=== PATIENT | female | born 1945 | race Caucasian/White ===

== ENCOUNTER 2022-07-26 09:29 | Emergency (ER) ==
--- OUTSIDE RECORDS SUMMARY | 2022-07-26 09:41 | XMS REPORT | Continuity of Care Document ---
:1945 Author Organization [facility] t Address [address] [place] [address] Care Team Providers Name Role Phone COCO REAL Primary Care Physician Unavaila DERRICK Brown Attending Clinician Unavailable LISA NORWOOD Attending Clinician Unavailable JAMIE COSTELLO Attending Clinician Unavailable MAXX JOHNSON Attending Clinician Unavailable MAXX JOHNSON Attending Clinician Unavailable Maxx Johnson MD Attending Clinician Unavailable Catracho Dubon MD Attending Clinician ROXIE TORRES Attending Clinician Unavailable CATRACHO DUBON Attending Clinician Unavailable MD LARISSA Attending Clinician Unavailable [id number] Attending Clinician Unavailable [id number] Attending Clinician Unavailable [id number] Attending Clinician Unavailable Lisa Norwood MD Attending Clinician Derrick Pierson DO Attending Clinician COCO REAL Attending Clinician Unavailable Elena Galvez MD Attending Clinician MAXX JOHNSON Admitting Clinician Unavailable Payers Payer Name Policy Type Policy Number Effective Date Expiration Date S neto [employer] MEDICARE 7 [id number] 2021 [id number] GOLD 00:00:00 PLUS 2021 [employer] MEDICARE [id number] 2021 ADV 00:00:00 Problems Condition Condition Condition Status Onset Resolution Last Treating Co mments Source Name Details Category Date Date Treatment Clinician Date Chest pain Chest pain Disease Active 2021-[address] [facility] Well adult Well adult Disease Active 2021-07 Kathryn calderon exam exam 0-11 Seybold 00:00: - 00 Externa l Asymptomat Asymptomat Disease Active 2021-07 Kathryn calderon ic ic 0-11 Seybold varicose varicose 00:00: - veins of veins of 00 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 s s Risk for Risk for Disease Active 2021-07 Kelse y falls falls 0-11 Seybold 00:00: - 00 Externa l Seasonal Seasonal Disease Active Kelse y allergic allergic 7-12 Seybol d rhinitis rhinitis 00:00: - due to due to 00 Externa pollen pollen l Hypertensi Hypertensi Disease Active 2020-07 Kathryn calderon on, on, 0-07 Seybold essential essential 00:00: - 00 Externa l 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 6-30 Se ybold asthma asthma 00:00: - without without 00 Externa complicati complicati l on on GERD GERD Disease Active Sonal (gastroeso (gastroeso 1-23 Se ybold phageal phageal 00:00: - reflux reflux 00 Externa disease) disease) l 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 The 10 yr probabili ty of fracture ( %):Major osteoporo tic- 5.4Hip fracture- 1.1 Allergies, Adverse Reactions, Alerts Allergy Allergy Status Severity Reaction(s) Onset Inactive Treating Comm ents Source Name Type Date Date Clinician Penicill Propensi Active Hives, Other [facility] also [facility] adverse Comments) 00:00: passed Medica l reaction 00 out. Center s PENICILL Allergy Active Hives [facility] Penicill Drug Active Other Pt states Kelse y ins Allergy 02-10 she also Seybold 00:00: passed 00 out. Penicill Drug Active Other Pt states Kelse y ins Allergy 02-10 she also Seybold 00:00: passed - 00 out. Externa l Social History Social Habit Start Date Stop Date Quantity Comments Source Exposure to Not sure Sonal greene SARS-CoV-2 (event) History [facility] Alcohol Frequency Medical Center History SDMN [facility] Alcohol Std Drinks Medica l Center History [facility]MN [facility] Alcohol Binge Medical Any ter History [facility] Transport Non-Med Medical Center History of tobacco Cigarette Smoker [facility] use Medical Center Alcohol intake 2022-06-19 2022-06-19 [facility] alcohol Medical Center (finding) History [facility] 2022-06-11 2022-06-[address] [facility] Alcohol Comment 00:00:00 00:00:00 Medical C enter History [facility] 2022-06-11 2022-06-[address] [facility] Transport Med 00:00:00 00:00:[address] History [facility] 2022-06-11 2022-06-[address] [facility] Housing Unable to 00:00:00 00:00:00 Medical Center Pay History [facility] 2022-06-11 2022-06-[address] [facility] Housing Places 00:00:00 00:00:00 Medical Ce nter Lived History [facility] 2022-06-11 2022-06-[address] [facility] Housing Homeless 00:00:00 00:00:00 Medical Center Last Year Cigarettes smoked 2022-06-11 2022-06-[address] [facility] current (pack per 00:00:00 00:00:00 Medical Center day) - Reported Tobacco use and 2022-06-11 2022-06-11 Never used MARY Tillman exposure 00:00:00 00:00:[address] [facility] Cigarette 2022-04-15 2022-04-15 Sonal Monkavebrady - pack-years 00:00:00 00:00:00 External Education 2022-04-15 2022-04-15 16 Sonal Lora - 00:00:00 00:00:00 External Tobacco Comment 2021-04-11 2021-04-11 a pack a week for Stew hurd Seybold - 00:00:00 00:00:00 39 years;stopped External x 2 weeks ago Sex [birth year] MARY Tillman 00:00:00 00:00:[address] [facility] Smoking Status Start Date Stop Date Source Former smoker 2022-06-11 00:00:00 2022-06-11 00:00:00 [facility] Smokes tobacco daily 2022-04-15 00:00:00 Sonal Lora - External Medications Ordered Filled Start Stop Current Ordering Indication Dosage Frequency Signature Comments Components Source Medication Medication Date Date Medication? Clinician (SIG) Name Name lisinopriL 2021-07 Yes 10mg QD Take [address] (PRINIVIL,Z 08-12 by mouth Luke s ESTRIL) 10 21:50: daily. Medic al MG tablet [address] [place] [address] famotidine 2021-07 Yes 20mg Take [address] (PEPCID) 20 - by mouth Luke s MG tablet 21:50: every Medical 07 night as Center needed for Heartburn. aspirin 81 2021-07 Yes 81mg QD Take [address] MG chewable 08-12 by mouth Luke s tablet 21:50: daily. Medical [address] [place] [address] melatonin-p 2021-07- No Take by [facility] yridoxine, 2- mouth. [facility] vit B6, 11:44: 00:00 Medical (MELATONIN, 21 :00 Center WITH B6,) 5-1 mg Tab Melatonin 5 2021-07- No Take by Ke lsey MG oral Tab 0-04-15 mouth Seybol d 08:44: 00:00 - 00 :00 Externa l Famotidine Yes [id number] 20mg Take 1 Sonal (PEPCID) 20 5-18 tablet (20 Se ybold MG oral 00:00: mg total) - tablet 00 by mouth Externa in the l morning and 1 tablet (20 mg total) in the evening. Melatonin 5 Yes Take by Claus sey MG oral Tab 4-26 mouth Seybold 10:25: 19 Famotidine Yes [id number] 20mg Take 1 Sonal (PEPCID) 20 4-26 tablet (20 Se ybold MG oral 00:00: mg total) tablet 00 by mouth in the morning and 1 tablet (20 mg total) in the evening. Albuterol Yes [id number] 2{puff} Q.25D Inhale 2 Sonal HFA 1-31 puffs into Seybold (VENTOLIN 00:00: the lungs HFA) 108 00 every 6 (90 Base) hours as MCG/ACT IN needed for AERS wheezing or shortness of breath FLUTICASONE Yes [id number] 100ug Use 2 Sonal PROPIONATE, 1-31 sprays Seybol d NASAL, 50 00:00: (100 mcg MCG/ACT 00 total) in nasal each Suspension nostril daily Albuterol Yes [id number] 2{puff} Q.25D Inhale 2 Sonal HFA 1-31 puffs into Seybold (VENTOLIN 00:00: the lungs - HFA) 108 00 every 6 Externa (90 Base) hours as l MCG/ACT IN needed for AERS wheezing or shortness of breath FLUTICASONE Yes [id number] 100ug Use 2 Sonal PROPIONATE, 1-31 sprays Seybol d NASAL, 50 00:00: (100 mcg - MCG/ACT 00 total) in Externa nasal each l Suspension nostril daily Melatonin 5 2020-07 Yes Take by Claus sey MG oral Tab 2-07 mouth Seybold 10:32: 16 Lisinopril 2020-07 Yes [id number] TAKE 1 K elsey 10 MG oral 2-04 TABLET BY Seyb old Tablet 00:00: MOUTH 00 EVERY DAY Lisinopril 2020-07 Yes [id number] TAKE 1 K elsey 10 MG oral 2-04 TABLET BY Seyb old Tablet 00:00: MOUTH 00 EVERY DAY Lisinopril 2020-07 Yes [id number] TAKE 1 K elsey 10 MG oral 2-04 TABLET BY Seyb old Tablet 00:00: MOUTH - 00 EVERY DAY Externa l Melatonin 5 2020-07 Yes Take by Claus sey MG oral Tab 0-19 mouth Seybold 08:00: 14 Melatonin 5 1 Yes Take by Claus sey MG oral Tab 0-07 mouth Seybold 09:53: 50 Melatonin 5 0 Yes Take by Claus sey MG oral Tab 9-21 mouth Seybold 08:00: 13 Lisinopril 0 Yes [id number] 10mg Take 1 K elsey 10 MG oral 9-21 tablet (10 Sey bold Tablet 00:00: mg total) 00 by mouth daily Lisinopril Yes [id number] 10mg Take 1 K elsey 10 MG oral 9-21 tablet (10 Sey bold Tablet 00:00: mg total) 00 by mouth daily Lisinopril Yes [id number] 10mg Take 1 K elsey 10 MG oral 9-21 tablet (10 Sey bold Tablet 00:00: mg total) 00 by mouth daily Melatonin 5 Yes Take by Claus sey MG oral Tab 9-07 mouth Seybold 08:15: 36 Triamcinolo 2020-0 Yes [id number] Apply K elsey ne 9-07 sparingly Seybold Acetonide 00:00: BID to 0.1 % apply 00 rash of externally body PRN. Ointment Not for face or folds. Triamcinolo 0 Yes [id number] Apply K elsey ne 9-07 sparingly Seybold Acetonide 00:00: BID to 0.1 % apply 00 rash of externally body PRN. Ointment Not for face or folds. Triamcinolo 2020-0 Yes [id number] Apply K elsey ne 9-07 sparingly Seybold Acetonide 00:00: BID to 0.1 % apply 00 rash of externally body PRN. Ointment Not for face or folds. Triamcinolo 2020-0 Yes [id number] Apply K elsey ne 9-07 sparingly Seybold Acetonide 00:00: BID to 0.1 % apply 00 rash of externally body PRN. Ointment Not for face or folds. Triamcinolo Yes [id number] Apply K elsey ne 9-07 sparingly Seybold Acetonide 00:00: BID to - 0.1 % apply 00 rash of Exter na externally body PRN. l Ointment Not for face or folds. Triamcinolo Yes [id number] Apply K elsey ne 9-07 sparingly Seybold Acetonide 00:00: BID to 0.1 % apply 00 rash of externally body PRN. Ointment Not for face or folds. Triamcinolo Yes [id number] Apply K elsey ne 9-07 sparingly Seybold Acetonide 00:00: BID to 0.1 % apply 00 rash of externally body PRN. Ointment Not for face or folds. Acyclovir 5 2020- No [id number] Apply 1 Sonal % apply 02-27 applicatio Seybo ld externally 00:00: 00:00 n Cream 00 :00 topically 5 times daily Levothyroxi Yes 75ug Take 1 Maribel ey ne Sodium 8-20 tablet (75 Seyb old 75 MCG oral 00:00: mcg total) Tablet 00 by mouth daily Levothyroxi Yes 75ug Take 1 Maribel ey ne Sodium 8-20 tablet (75 Seyb old 75 MCG oral 00:00: mcg total) Tablet 00 by mouth daily Levothyroxi Yes 75ug Take 1 Maribel ey ne Sodium 8-20 tablet (75 Seyb old 75 MCG oral 00:00: mcg total) Tablet 00 by mouth daily Levothyroxi Yes 75ug Take 1 Maribel ey ne Sodium 8-20 tablet (75 Seyb old 75 MCG oral 00:00: mcg total) Tablet 00 by mouth daily Levothyroxi Yes 75ug Take 1 Maribel ey ne Sodium 8-20 tablet (75 Seyb old 75 MCG oral 00:00: mcg total) - Tablet 00 by mouth Externa daily l Levothyroxi Yes 75ug Take 1 Maribel ey ne Sodium 8-20 tablet (75 Seyb old 75 MCG oral 00:00: mcg total) Tablet 00 by mouth daily Levothyroxi 2021-0 Yes 75ug Take 1 Maribel ey ne Sodium 8-20 tablet (75 Seyb old 75 MCG oral 00:00: mcg total) Tablet 00 by mouth daily Budesonide- 2020-0 Yes [id number] 2{puff} Inhale 2 Sonal Formoterol 3-30 puffs into Sey bold Fumarate 00:00: the lungs (Symbicort) 00 2 times 160-4.5 daily MCG/ACT inhalation Aerosol Budesonide- 2020-0 Yes [id number] 2{puff} Inhale 2 Sonal Formoterol 3-30 puffs into Sey bold Fumarate 00:00: the lungs (Symbicort) 00 2 times 160-4.5 daily MCG/ACT inhalation Aerosol Budesonide- 2020-0 Yes [id number] 2{puff} Inhale 2 Sonal Formoterol 3-30 puffs into Sey bold Fumarate 00:00: the lungs (Symbicort) 00 2 times 160-4.5 daily MCG/ACT inhalation Aerosol Budesonide- 2020-0 Yes [id number] 2{puff} Inhale 2 Sonal Formoterol 3-30 puffs into Sey bold Fumarate 00:00: the lungs (Symbicort) 00 2 times 160-4.5 daily MCG/ACT inhalation Aerosol Budesonide- 2020-0 Yes [id number] 2{puff} Inhale 2 Sonal Formoterol 3-30 puffs into Sey bold Fumarate 00:00: the lungs (Symbicort) 00 2 times 160-4.5 daily MCG/ACT inhalation Aerosol Budesonide- 2020-0 Yes [id number] 2{puff} Inhale 2 Sonal Formoterol 3-30 puffs into Sey bold Fumarate 00:00: the lungs (Symbicort) 00 2 times 160-4.5 daily MCG/ACT inhalation Aerosol Baclofen 10 2020-0 2020- No [id number] Take half Sonal MG oral 3-12 09-07 a tablet Seybold Tablet 00:00: 00:00 po tid as 00 :00 needed for low back pain FLUTICASONE 2019- Yes [id number] 2{spray Use 2 Sonal PROPIONATE, 0-13 } sprays in Sey bold NASAL, 50 00:00: each MCG/ACT 00 nostril nasal daily Suspension FLUTICASONE 2019-07 Yes [id number] 2{spray Use 2 Sonal PROPIONATE, 0-13 } sprays in Sey bold NASAL, 50 00:00: each MCG/ACT 00 nostril nasal daily Suspension FLUTICASONE 2020-1 Yes [id number] 2{spray Use 2 Sonal PROPIONATE, 0-13 } sprays in Sey bold NASAL, 50 00:00: each MCG/ACT 00 nostril nasal daily Suspension FLUTICASONE 2020-1 Yes [id number] 2{spray Use 2 Sonal PROPIONATE, 0-13 } sprays in Sey bold NASAL, 50 00:00: each MCG/ACT 00 nostril nasal daily Suspension FLUTICASONE 2020-1 Yes [id number] 2{spray Use 2 Sonal PROPIONATE, 0-13 } sprays in Sey bold NASAL, 50 00:00: each MCG/ACT 00 nostril nasal daily Suspension Albuterol 2020-0 Yes [id number] 2{puff} Q6H Inhale 2 Sonal HFA 3-20 puffs into Seybold (VENTOLIN 00:00: the lungs HFA) 108 00 every 6 (90 Base) hours as MCG/ACT IN needed for AERS wheezing or shortness of breath Spacer/Aero 2020-0 Yes Use with Ke lsey -Holding 3-20 albuterol Seybol d Chambers 00:00: inhaler (OPTICHAMBE 00 R FACE MASK-MEDIUM ) does not apply Misc Albuterol 2020-0 Yes [id number] 2{puff} Q6H Inhale 2 Sonal HFA 3-20 puffs into Seybold (VENTOLIN 00:00: the lungs HFA) 108 00 every 6 (90 Base) hours as MCG/ACT IN needed for AERS wheezing or shortness of breath Spacer/Aero 2020-0 Yes Use with Ke lsey -Holding 3-20 albuterol Seybol d Chambers 00:00: inhaler (OPTICHAMBE 00 R FACE MASK-MEDIUM ) does not apply Misc Spacer/Aero 2020-0 Yes Use with Ke lsey -Holding 3-20 albuterol Seybol d Chambers 00:00: inhaler (OPTICHAMBE 00 R FACE MASK-MEDIUM ) does not apply Misc Spacer/Aero 2020-0 Yes Use with Ke lsey -Holding 3-20 albuterol Seybol d Chambers 00:00: inhaler - (OPTICHAMBE 00 Externa R FACE l MASK-MEDIUM ) does not apply Misc Albuterol 2020-0 Yes [id number] 2{puff} Q6H Inhale 2 Sonal HFA 3-20 puffs into Seybold (VENTOLIN 00:00: the lungs HFA) 108 00 every 6 (90 Base) hours as MCG/ACT IN needed for AERS wheezing or shortness of breath Spacer/Aero 2020-0 Yes Use with Ke lsey -Holding 3-20 albuterol Seybol d Chambers 00:00: inhaler (OPTICHAMBE 00 R FACE MASK-MEDIUM ) does not apply Misc Albuterol 2020-0 Yes [id number] 2{puff} Q6H Inhale 2 Sonal HFA 3-20 puffs into Seybold (VENTOLIN 00:00: the lungs HFA) 108 00 every 6 (90 Base) hours as MCG/ACT IN needed for AERS wheezing or shortness of breath Spacer/Aero 2020-0 Yes Use with Ke lsey -Holding 3-20 albuterol Seybol d Chambers 00:00: inhaler (OPTICHAMBE 00 R FACE MASK-MEDIUM ) does not apply Misc Albuterol 2020-0 Yes [id number] 2{puff} Q6H Inhale 2 Sonal HFA 3-20 puffs into Seybold (VENTOLIN 00:00: the lungs HFA) 108 00 every 6 (90 Base) hours as MCG/ACT IN needed for AERS wheezing or shortness of breath Spacer/Aero 2020-0 Yes Use with Ke lsey -Holding 3-20 albuterol Seybol d Chambers 00:00: inhaler (OPTICHAMBE 00 R FACE MASK-MEDIUM ) does not apply Misc levothyroxi Yes 75ug Take [address] [facility] 8-06 [facility]cg by [facility] (SYNTHROID, 00:00: mouth Medic al LEVOTHROID) 00 Every Center 75 MCG morning on tablet an empty stomach . budesonide- 2021- No 2{puff} [address] formoterol 3-31 12-07 [facility] (SYMBICORT) 00:00: 00:00 Medic al 160-4.5 00 :00 Center mcg/actuati on inhaler albuterol 2021- No 2{puff} [address] [address] HFA (PROAIR 6-06-[address] [facility] HFA) 90 00:00: 00:00 Medical mcg/actuati 00 :00 Center on inhaler Immunizations Ordered Immunization Filled Immunization Date Status Commen ts Source Name Name Influenza Virus 2022-04-15 Completed Sonal Se ybold Vaccine, 00:00:00 - External Quadrivalent, High Dose, Age 65 And Up Influenza Virus 2021-03-26 Completed Sonal Se ybold Vaccine, 00:00:00 Quadrivalent, High Dose, Age 65 And Up Influenza Virus 2021-03-26 Completed Sonal Se ybold Vaccine, 00:00:00 Quadrivalent, High Dose, Age 65 And Up Influenza Virus 2021-03-26 Completed Sonal Se ybold Vaccine, 00:00:00 Quadrivalent, High Dose, Age 65 And Up Influenza Virus 2021-03-26 Completed Sonal Se ybold Vaccine, 00:00:00 Quadrivalent, High Dose, Age 65 And Up Influenza Virus 2021-03-26 Completed Sonal Se ybold Vaccine, 00:00:00 - External Quadrivalent, High Dose, Age 65 And Up Influenza Virus 2021-03-26 Completed Sonal Se ybold Vaccine, 00:00:00 Quadrivalent, High Dose, Age 65 And Up Covid-19 Vaccine 2020-10-03 Completed Sonal powellbold (Moderna), Mrna-lnp, 00:00:00 [facility] Protein, Pf, 100 Mcg/0.5ml,IM Covid-19 Vaccine 2020-10-03 Completed Sonal Whitlock eybold (Moderna), Mrna-lnp, 00:00:00 [facility] Protein, Pf, 100 Mcg/0.5ml,IM Covid-19 Vaccine 2020-10-03 Completed Sonal Whitlock eybold (Moderna), Mrna-lnp, 00:00:00 [facility] Protein, Pf, 100 Mcg/0.5ml,IM Covid-19 Vaccine 2020-10-03 Completed Sonal Whitlock eybold Moderna (Spikevax), 00:00:00 Mrna-lnp, [facility] Protein, Pf Covid-19 Vaccine 2020-10-03 Completed Sonal delgadold Moderna (Spikevax), 00:00:00 - Ext ernal Mrna-lnp, [facility] Protein, Pf Covid-19 Vaccine 2020-10-03 Completed Sonal S eybold (Moderna), Mrna-lnp, 00:00:00 [facility] Protein, Pf, 100 Mcg/0.5ml,IM Covid-19 Vaccine 2020-10-03 Completed Sonal S eybold (Moderna), Mrna-lnp, 00:00:00 [facility] Protein, Pf, 100 Mcg/0.5ml,IM Covid-19 Vaccine 2020-09-05 Completed Sonal S eybold (Moderna), Mrna-lnp, 00:00:00 [facility] Protein, Pf, 100 Mcg/0.5ml,IM Covid-19 Vaccine 2020-09-05 Completed Sonal S eybold (Moderna), Mrna-lnp, 00:00:00 [facility] Protein, Pf, 100 Mcg/0.5ml,IM Covid-19 Vaccine 2020-09-05 Completed Sonal S eybold (Moderna), Mrna-lnp, 00:00:00 [facility] Protein, Pf, 100 Mcg/0.5ml,IM Covid-19 Vaccine 2020-09-05 Completed Sonal S eybold Moderna (Spikevax), 00:00:00 Mrna-lnp, [facility] Protein, Pf Covid-19 Vaccine 2020-09-05 Completed Sonal S eybold Moderna (Spikevax), 00:00:00 - Ext ernal Mrna-lnp, [facility] Protein, Pf Covid-19 Vaccine 2020-09-05 Completed Sonal S eybold (Moderna), Mrna-lnp, 00:00:00 [facility] Protein, Pf, 100 Mcg/0.5ml,IM Covid-19 Vaccine 2020-09-05 Completed Sonal S eybold (Moderna), Mrna-lnp, 00:00:00 [facility] Protein, Pf, 100 Mcg/0.5ml,IM Influenza Virus 2020-02-28 Completed Sonal Se ybold Vaccine, 00:00:00 Quadrivalent, High Dose, Age 65 And Up Influenza Virus 2020-02-28 Completed Soanl Se ybold Vaccine, 00:00:00 Quadrivalent, High Dose, Age 65 And Up Influenza Virus 2020-02-28 Completed Sonal Se ybold Vaccine, 00:00:00 Quadrivalent, High Dose, Age 65 And Up Influenza Virus 2020-02-28 Completed Sonal Se ybold Vaccine, 00:00:00 Quadrivalent, High Dose, Age 65 And Up Influenza Virus 2020-02-28 Completed Sonal Se ybold Vaccine, 00:00:00 - External Quadrivalent, High Dose, Age 65 And Up Influenza Virus 2020-02-28 Completed Sonal Se ybold Vaccine, 00:00:00 Quadrivalent, High Dose, Age 65 And Up Influenza Virus 2020-02-28 Completed Sonal Se ybold Vaccine, 00:00:00 Quadrivalent, High Dose, Age 65 And Up Influenza Virus 2019-06-20 Completed Sonal Se ybold Vaccine, High Dose, 00:00:00 Age 65 And Up Influenza Virus 2019-06-20 Completed Sonal Se ybold Vaccine, High Dose, 00:00:00 Age 65 And Up Influenza Virus 2019-06-20 Completed Sonal Se ybold Vaccine, High Dose, 00:00:00 Age 65 And Up Influenza Virus 2019-06-20 Completed Sonal Se ybold Vaccine, High Dose, 00:00:00 Age 65 And Up Influenza Virus 2019-06-20 Completed Sonal Se ybold Vaccine, High Dose, 00:00:00 - Ext ernal Age 65 And Up Influenza Virus 2019-06-20 Completed Sonal Se ybold Vaccine, High Dose, 00:00:00 Age 65 And Up Influenza Virus 2019-06-20 Completed Sonal Se ybold Vaccine, High Dose, 00:00:00 Age 65 And Up Shingles IM 2018-06-24 Completed Sonal Seybol d (Shingrix) 00:00:00 Shingles IM 2018-06-24 Completed Sonal Seybol d (Shingrix) 00:00:00 Shingles IM 2018-06-24 Completed Sonal Seybol d (Shingrix) 00:00:00 Shingles IM 2018-06-24 Completed Sonal Seybol d (Shingrix) 00:00:00 Shingles IM 2018-06-24 Completed Sonal Seybol d (Shingrix) 00:00:00 - External Shingles IM 2018-06-24 Completed Sonal Seybol d (Shingrix) 00:00:00 Shingles IM 2018-06-24 Completed Sonal Seybol d (Shingrix) 00:00:00 Influenza Virus 2018-05-19 Completed Sonal Se ybold Vaccine, High Dose, 00:00:00 Age 65 And Up Influenza Virus 2018-05-19 Completed Sonal Se ybold Vaccine, High Dose, 00:00:00 Age 65 And Up Influenza Virus 2018-05-19 Completed Sonal Se ybold Vaccine, High Dose, 00:00:00 Age 65 And Up Influenza Virus 2018-05-19 Completed Sonal Se ybold Vaccine, High Dose, 00:00:00 Age 65 And Up Influenza Virus 2018-05-19 Completed Sonal Se ybold Vaccine, High Dose, 00:00:00 - Ext ernal Age 65 And Up Influenza Virus 2018-05-19 Completed Sonal Se ybold Vaccine, High Dose, 00:00:00 Age 65 And Up Influenza Virus 2018-05-19 Completed Sonal Se ybold Vaccine, High Dose, 00:00:00 Age 65 And Up Shingles IM 2018-03-25 Completed Sonal Seybol d (Shingrix) 00:00:00 Shingles IM 2018-03-25 Completed Sonal Seybol d (Shingrix) 00:00:00 Shingles IM 2018-03-25 Completed Sonal Seybol d (Shingrix) 00:00:00 Shingles IM 2018-03-25 Completed Sonal Seybol d (Shingrix) 00:00:00 Shingles IM 2018-03-25 Completed Sonal Seybol d (Shingrix) 00:00:00 - External Shingles IM 2018-03-25 Completed Sonal Seybol d (Shingrix) 00:00:00 Shingles IM 2018-03-25 Completed Sonal Seybol d (Shingrix) 00:00:00 Influenza Virus 2017-04-29 Completed Sonal Se ybold Vaccine, High Dose, 00:00:00 Age 65 And Up Influenza Virus 2017-04-29 Completed Sonal Se ybold Vaccine, High Dose, 00:00:00 Age 65 And Up Influenza Virus 2017-04-29 Completed Sonal Se ybold Vaccine, High Dose, 00:00:00 Age 65 And Up Influenza Virus 2017-04-29 Completed Osnal Se ybold Vaccine, High Dose, 00:00:00 Age 65 And Up Influenza Virus 2017-04-29 Completed Sonal Se ybold Vaccine, High Dose, 00:00:00 - Ext ernal Age 65 And Up Influenza Virus 2017-04-29 Completed Sonal Se ybold Vaccine, High Dose, 00:00:00 Age 65 And Up Influenza Virus 2017-04-29 Completed Sonal Se ybold Vaccine, High Dose, 00:00:00 Age 65 And Up Pneumococcal Vaccine, 2016-04-04 Completed Claus sey Seybold Conjugate 13 00:00:00 Influenza Virus 2016-04-04 Completed Sonal Se ybold Vaccine, High Dose, 00:00:00 Age 65 And Up Pneumococcal Vaccine, 2016-04-04 Completed Claus sey Seybold Conjugate 13 00:00:00 Influenza Virus 2016-04-04 Completed Sonal Se ybold Vaccine, High Dose, 00:00:00 Age 65 And Up Pneumococcal Vaccine, 2016-04-04 Completed Claus sey Seybold Conjugate 13 00:00:00 Influenza Virus 2016-04-04 Completed Sonal Se ybold Vaccine, High Dose, 00:00:00 Age 65 And Up Pneumococcal Vaccine, 2016-04-04 Completed Claus sey Seybold Conjugate 13 00:00:00 Influenza Virus 2016-04-04 Completed Sonal Se ybold Vaccine, High Dose, 00:00:00 Age 65 And Up Pneumococcal Vaccine, 2016-04-04 Completed Claus sey Seybold Conjugate 13 00:00:00 - External Influenza Virus 2016-04-04 Completed Sonal Se ybold Vaccine, High Dose, 00:00:00 - Ext ernal Age 65 And Up Pneumococcal Vaccine, 2016-04-04 Completed Claus sey Seybold Conjugate 13 00:00:00 Influenza Virus 2016-04-04 Completed Sonal Se ybold Vaccine, High Dose, 00:00:00 Age 65 And Up Pneumococcal Vaccine, 2016-04-04 Completed Claus sey Seybold Conjugate 13 00:00:00 Influenza Virus 2016-04-04 Completed Sonal Se ybold Vaccine, High Dose, 00:00:00 Age 65 And Up Tdap- (Boostrix, 2016-03-07 Completed Sonal Whitlock eybold Adacel) 00:00:00 Tdap- (Boostrix, 2016-03-07 Completed Sonal Whitlock eybold Adacel) 00:00:00 Tdap- (Boostrix, 2016-03-07 Completed Sonal Whitlock eybold Adacel) 00:00:00 Tdap- (Boostrix, 2016-03-07 Completed Sonal powellbonupur Adacel) 00:00:00 Tdap- (Boostrix, 2016-03-07 Completed Sonal Whitlock eybold Adacel) 00:00:00 - External Tdap- (Boostrix, 2016-03-07 Completed Sonal Whitlock eybold Adacel) 00:00:00 Tdap- (Boostrix, 2016-03-07 Completed Sonal Whitlock eybold Adacel) 00:00:00 Tdap 2016-03-[address] [facility] 00:00:[address] [facility] Pneumococcal Vaccine, 2012-10-20 Completed Claus sey Seybold Polysaccharide 00:00:00 Pneumococcal Vaccine, 2012-10-20 Completed Claus sey Seybold Polysaccharide 00:00:00 Pneumococcal Vaccine, 2012-10-20 Completed Claus sey Seybold Polysaccharide 00:00:00 Pneumococcal Vaccine, 2012-10-20 Completed Claus sey Seybold Polysaccharide 00:00:00 Pneumococcal Vaccine, 2012-10-20 Completed Claus sey Seybold Polysaccharide 00:00:00 - External Pneumococcal Vaccine, 2012-10-20 Completed Claus sey Seybold Polysaccharide 00:00:00 Pneumococcal Vaccine, 2012-10-20 Completed Claus sey Seybold Polysaccharide 00:00:00 Shingles SQ 2010-07-06 Completed Sonal Seybol d (Zostavax) 00:00:00 Shingles SQ 2010-07-06 Completed Sonal Seybol d (Zostavax) 00:00:00 Shingles SQ 2010-07-06 Completed Sonal Seybol d (Zostavax) 00:00:00 Shingles SQ 2010-07-06 Completed Sonal Seybol d (Zostavax) 00:00:00 Shingles SQ 2010-07-06 Completed Sonal Seybol d (Zostavax) 00:00:00 - External Shingles SQ 2010-07-06 Completed Sonal Seybol d (Zostavax) 00:00:00 Shingles SQ 2010-07-06 Completed Sonal Seybol d (Zostavax) 00:00:00 Vital Signs Vital Name Observation Time Observation Value Comments Source HEIGHT 2022-06-11 11:18:00 152.4 cm WEIGHT 2022-06-11 11:18:00 66.815 kg HEIGHT 2022-06-11 11:18:00 152.4 cm WEIGHT 2022-06-11 11:18:00 66.815 kg Systolic blood 2022-04-15 13:38:00 124 mm[Hg] Sonal Seybold pressure - External Diastolic blood 2022-04-15 13:38:00 84 mm[Hg] Kelse y Seybold pressure - External Heart rate 2022-04-15 13:38:00 74 /min Sonal S eybold - External Body temperature 2022-04-15 13:38:00 36.28 Cheyanne Maribel ey Seybold - External Respiratory rate 2022-04-15 13:38:00 14 /min Maribel ey Seybold - External Body height 2022-04-15 13:38:00 152.4 cm Sonal S eybold - External Body weight 2022-04-15 13:38:00 69.4 kg Sonal S eybold - External BMI 2022-04-15 13:38:00 29.88 kg/m2 Sonal S eybold - External Systolic blood 2021-10-29 15:22:00 132 mm[Hg] Sonal Seybold pressure Diastolic blood 2021-10-29 15:22:00 78 mm[Hg] Kelse y Seybold pressure Heart rate 2021-10-29 15:22:00 72 /min Sonal S eybold Body temperature 2021-10-29 15:22:00 36.56 Cheyanne Maribel ey Seybold Respiratory rate 2021-10-29 15:22:00 14 /min Maribel ey Seybold Body height 2021-10-29 15:22:00 152.4 cm Sonal S eybold Body weight 2021-10-29 15:22:00 70.308 kg Sonal S eybold BMI 2021-10-29 15:22:00 30.27 kg/m2 Sonal S eybold Systolic blood 2021-04-23 12:56:00 162 mm[Hg] Sonal Seybold pressure Diastolic blood 2021-04-23 12:56:00 76 mm[Hg] Kelse y Seybold pressure Heart rate 2021-04-23 12:56:00 77 /min Sonal S eybold Body temperature 2021-04-23 12:56:00 36 Cheyanne Maribel ey Seybold Respiratory rate 2021-04-23 12:56:00 12 /min Maribel ey Seybold Body height 2021-04-23 12:56:00 152.4 cm Sonal S eybold Body weight 2021-04-23 12:56:00 68.947 kg Sonal S eybold BMI 2021-04-23 12:56:00 29.69 kg/m2 Sonal S eybold Systolic blood 2021-04-11 15:06:00 114 mm[Hg] Sonal Seybold pressure Diastolic blood 2021-04-11 15:06:00 68 mm[Hg] Kelse y Seybold pressure Heart rate 2021-04-11 15:06:00 72 /min Sonal S eybold Body temperature 2021-04-11 15:06:00 36.72 Cheyanne Maribel ey Seybold Respiratory rate 2021-04-11 15:06:00 14 /min Maribel ey Seybold Body height 2021-04-11 15:06:00 152.4 cm Sonal S eybold Body weight 2021-04-11 15:06:00 68.947 kg without shoes Sonal Seybold BMI 2021-04-11 15:06:00 29.69 kg/m2 Sonal S eybold Oxygen saturation 2021-04-11 15:06:00 99 /min Claus Lora in Arterial blood by Pulse oximetry Systolic blood 2021-03-26 12:57:00 172 mm[Hg] Sonal Seybold pressure Diastolic blood 2021-03-26 12:57:00 90 mm[Hg] Kelse y Seybold pressure Heart rate 2021-03-26 12:57:00 72 /min Sonal S eybold Respiratory rate 2021-03-26 12:57:00 14 /min Maribel ey Seybold Body height 2021-03-26 12:57:00 152.4 cm Sonal S eybold Body weight 2021-03-26 12:57:00 70.308 kg Sonal S eybold BMI 2021-03-26 12:57:00 30.27 kg/m2 Sonal gao Systolic blood 2022-06-11 21:15:00 117 mm[Hg] [facility] Diastolic blood 2022-06-11 21:15:00 56 mm[Hg] [facility] Heart rate 2022-06-11 21:15:00 78 /min [facility] Respiratory rate 2022-06-11 20:45:00 18 /min [facility] Oxygen saturation 2022-06-11 19:53:00 96 /min [facility] in Arterial blood Medical nter by Pulse oximetry Body temperature 2022-06-11 11:18:00 36.44 Cheyanne [facility] Body height 2022-06-11 11:18:00 152.4 cm [facility] Body weight 2022-06-11 11:18:00 66.815 kg [facility] BMI 2022-06-11 11:18:00 28.77 kg/m2 [facility] Procedures Procedure Date / Time Performed Performing Clinician [facility] e CATHETERIZATION, HEART, 2022-06-11 18:24:[address] [facility] LEFT, WITH PERCUTANEOUS [facility] CORONARY INTERVENTION PERCUTANEOUS CORONARY 2022-06-11 18:24:00 Catracho Dubon [facility] INTERVENTION, WITH STENT [facility] INSERTION ABORH, MANUAL 2022-06-11 12:10:00 Cally Doss [facility] TYPE AND SCREEN, 2022-06-11 12:03:00 Katie Preston [facility] AUTOMATED [facility] VASCULAR DIAGRAM -SCAN 2022-06-11 00:00:00 Provider, Default [facility] Scanning [facility] CARDIAC CATH REPORT - 2022-06-11 00:00:00 Provider, Default [facility] SCAN Scanning [facility] EKG-SCANNED 2022-06-11 00:00:00 Provider, Default [facility] Scanning [facility] URINALYSIS, ROUTINE 2021-04-11 16:21:00 Coco Real Seybbrady Risinger HGB A1C WITH MBG 2021-04-11 15:36:00 Coco Real ESTIMATION Zen LIPID PANEL 2021-04-11 15:35:00 Coco Real S andrebonupur Zaldivar CMP14+CBC/D/PLT+TSH 2021-04-11 15:35:00 Coco Real W/RFLX Zen Plan of Care Planned Activity Planned Date Details Comments Source Future Scheduled 2026-03-07 DTAP/TDAP/TD VACCINES [facility] 00:00:00 (2 - Td or Tdap) Medical Any ter [code = DTAP/TDAP/TD VACCINES (2 - Td or Tdap)] Future Scheduled 2023-06-[address] [facility] Test 00:00:00 Counseling and Medical Cente r Screening (12+) [code = Tobacco Cessation Counseling and Screening (12+)] Future Scheduled 2022-07-[address] [facility] Test 00:00:00 (12+) [code = Medical Center DEPRESSION SCREENING (12+)] Future Scheduled 2022-07-06 FALLS RISK SCREENING [facility] Test 00:00:00 [code = FALLS RISK Medical C enter SCREENING] Future Scheduled 2021-03-05 COVID-19 VACCINE (3 - [facility] 00:[facility]:00 Booster for [facility] series) [code = COVID-19 VACCINE (3 - Booster for Modern[employer] series)] Future Scheduled 2016-07-[address] [facility] 00:00:00 WELLNESS (YEAR 2 or Medical Center FIRST YEAR if no IPPE) [code = MEDICARE ANNUAL WELLNESS (YEAR 2 or FIRST YEAR if no IPPE)] Future Scheduled 2010-08-31 SHINGLES VACCINES ([address] [facility] 00:00:00 of 3) [code = Medical Center SHINGLES VACCINES (2 of 3)] Future Scheduled 1962-02-02 HEPATITIS C SCREENING [facility] 00:00:00 [code = HEPATITIS C Medical Center SCREENING] Future Scheduled 1944 DXA SCAN [code = DXA [facility] Test 00:00:00 SCAN] Medical Center Encounters Start End Encounter Admission Attending Care Care Encounter Source Date/Time Date/Time Type Type Clinicians Facility Department ID 2022-10-14 2022-10-14 Outpatient SONAL PIERSON [id number] Sonal 10:00:00 10:00:00 DERRICK Seybol d 2022-08-14 2022-08-14 Outpatient SONAL CARRILLO [id number] Sonal 11:30:00 11:30:00 Seybol d 2022-08-14 2022-08-14 Outpatient SONAL CARRILLO [id number] Sonal 10:40:00 10:40:00 Seybol d 2022-07-25 2022-07-25 Outpatient SONAL NORWOOD [id number] Sonal 00:00:00 00:00:00 LISA Seybol d 2022-07-24 2022-07-24 Outpatient SONAL COSTELLO [id number] Sonal 13:25:00 13:25:00 JAMIE Seybol d 2022-07-02 2022-07-02 Outpatient SONAL COSTELLO [id number] Sonal 13:25:00 13:25:00 JAMIE Seybol d 2022-06-12 2022-06-12 Outpatient SONAL JOHNSON [id number] Sonal 00:00:00 00:00:00 MAXX Seybol d 2022-06-11 2022-06-11 Outpatient [facility] Surgery [id number] SLE 11:06:00 21:50:00 [facility] 2022-06-11 2022-06-11 [facility] [id number] 11:06:00 21:50:00 Encounter [facility] 2022-06-11 2022-06-11 [facility] [id number] 18:03:00 20:39:00 [facility] 2022-06-11 2022-06-11 Outpatient SONAL TORRES [id number] Sonal 08:00:00 08:00:00 [place] Seybol d 2022-06-11 2022-06-11 Outpatient SONAL DUBON [id number] Sonal 00:00:00 00:00:00 CATRACHO Seybol d 2022-06-11 2022-06-11 Travel [facility] [id number] [facility] 00[facility]00 [facility] 2022-06-10 2022-06-10 Outpatient GIO SONAL CARRILLO [id number] Sonal 00:00:00 00:00:00 MD SALOME Seybol d 2022-06-07 2022-06-07 Outpatient SONAL COSTELLO [id number] Sonal 00:00:00 00:00:00 JAMIE Seybol d 2022-06-06 2022-06-06 Outpatient SONAL COSTELLO [id number] Sonal 00:00:00 00:00:00 JAMIE Seybol d 2022-06-06 2022-06-06 Outpatient SONAL CARRILLO [id number] Sonal 00:00:00 00:00:00 Seybol d 2022-06-04 2022-06-04 Outpatient SONAL CARRILLO [id number] Sonal 16:35:00 16:35:00 Seybol d 2022-06-04 2022-06-04 Outpatient LAB47 SONAL CARRILLO [id number] Sonal 16:00:00 16:00:00 Seybol d 2022-06-04 2022-06-04 Outpatient SONAL COSTELLO [id number] Sonal 15:10:00 15:10:00 JAMIE Seybol d 2022-06-04 2022-06-04 Outpatient TRED4Srinivasa CARRILLO [id number] Sonal 11:45:00 11:45:00 Seybol d 2022-04-28 2022-04-28 Outpatient TRED4Srinivasa CARRILLO [id number] Sonal 11:00:00 11:00:00 Seybol d 2022-04-24 2022-04-24 Outpatient TRED4Srinivasa CARRILLO [id number] Sonal 11:30:00 11:30:00 Seybol d 2022-04-24 2022-04-24 Outpatient SONAL COSTELLO [id number] Sonal 10:40:00 10:40:00 JAMIE Seybol d 2022-04-16 2022-04-16 Outpatient SONAL PIERSON [id number] Sonal 00:00:00 00:00:00 DERRICK Seybol d 2022-04-16 2022-04-16 Outpatient SHAGUFTA SONAL CARRILLO [id number] Sonal 00:00:00 00:00:00 DERRICK Seybol d 2022-04-15 2022-04-15 Outpatient LAB90 SONAL CARRILLO [id number] Sonal 09:45:00 09:45:00 Seybol d 2022-04-15 2022-04-15 Outpatient SHAGUFTA SONAL CARRILLO [id number] Sonal 08:45:00 08:45:00 DERRICK Seybol d 2022-02-20 2022-02-20 Outpatient SONAL NORWOOD [id number] Sonal 00:00:00 00:00:00 LISA Seybol d 2022-02-17 2022-02-17 Outpatient SONAL NORWOOD [id number] Sonal 00:00:00 00:00:00 LISA Seybol d 2022-02-12 2022-02-12 Office Collin Norwood [id number] Sonal 08:30:00 09:00:00 Visit Lisa Wiley [id number] Se aveold Somogyi [id number] 2022-02-11 2022-02-11 Outpatient SONAL NORWOOD [id number] Sonal 00:00:00 00:00:00 LISA Seybol d 2022-01-15 2022-01-15 Outpatient SONAL NORWOOD [id number] Sonal 10:45:00 10:45:00 LISA Seybol d 2022-01-14 2022-01-14 Office Collin Pierson [id number] Sonal 10:45:00 11:00:00 Visit Derrick Wiley [id number] Se ybold [id number] 2021-10-29 2021-10-29 Office Collin Norwood [id number] Sonal 10:30:00 10:45:00 Visit Lisa Wiley [id number] Se ybold Somogyi [id number] 2021-08-02 2021-08-02 Outpatient SONAL REAL [id number] Sonal 00:00:00 00:00:00 COCO Seyb old 2021-07-31 2021-07-31 Outpatient SONAL NORWOOD [id number] Sonal 00:00:00 00:00:00 LISA Seybol d 2021-06-11 2021-06-11 Office ZULLY Galvez [id number] Sonal 10:00:00 10:15:00 Visit Elena [id number] S sima [id number] 2021-06-08 2021-06-08 Outpatient SONAL NORWOOD [id number] Sonal 00:00:00 00:00:00 LISA Seybol d 2021-06-06 2021-06-06 Outpatient SONAL CARRILLO [id number] Sonal 13:40:00 13:40:00 Seybol d 2021-06-06 2021-06-06 Outpatient SONAL CARRILLO [id number] Sonal 13:00:00 13:00:00 Seybol d 2021-05-31 2021-05-31 Outpatient SONAL CARRILLO [id number] Sonal 12:20:00 12:20:00 Seybol d 2021-05-31 2021-05-31 Outpatient SONAL CARRILLO [id number] Sonal 11:00:00 11:00:00 Seybol d 2021-04-23 2021-04-23 Office Collin Norwood [id number] Sonal 07:54:17 08:24:17 Visit Lisa Wiley [id number] Se ybold Somogyi [id number] 2021-04-11 2021-04-11 Outpatient [facility] SONAL CARRILLO [id number] Sonal 11:00:00 11:00:00 Seybol d 2021-04-11 2021-04-11 Office АНДРЕЙ REALJOHNATHAN [id number] Sonal 10:00:00 10:00:00 Visit COCO [id number] Seybold [id number] 2021-03-28 2021-03-28 Outpatient SONAL NORWOOD [id number] Sonal 00:00:00 00:00:00 LISA Seybol d 2021-03-26 2021-03-26 Outpatient SONAL NORWOOD [id number] Sonal 13:30:00 13:30:00 LISA Seybol d 2021-03-26 2021-03-26 Office Collin Norwood [id number] Sonal 07:55:35 08:25:35 Visit Lisa Wiley [id number] Se ybold Somogyi [id number] 2021-03-22 2021-03-22 Outpatient SONAL NORWOOD [id number] Sonal 09:00:00 09:00:00 LISA Seybol d 2021-03-12 2021-03-12 Office ZULLY Galvez [id number] Sonal 07:59:43 08:14:43 Visit Elena [id number] S eybold [id number] 2021-02-22 2021-02-22 Outpatient SONAL NORWOOD [id number] Sonal 08:00:00 08:00:00 LISA Seybol d 2021-01-22 2021-01-22 Outpatient SONAL NORWOOD [id number] Sonal 14:15:00 14:15:00 LISA Seybol d Results Test Description Test Time Test Comments Results Result Comments Source LIPID PANEL 2021-04-13 19:06:00 Test Item Value Reference Range Interpretation Comme nts CHOLESTEROL, TOTAL (test code = 2093-3) 176 mg/dL 100-199 TRIGLYCERIDES (test code = 2571-8) 128 mg/dL 0-149 HDL CHOLESTEROL (test code = 2085-9) 59 mg/dL >39 VLDL CHOLESTEROL PARKER (test code = 22 mg/dL 5-40 43254-8) LDL CHOL CALC ([facility]) (test code = 95 mg/dL 0-99 68687-9) ARTURO (test code = ARTURO) [facility] results reported in Eastern Time. L[facility] Clinical Information:LCA Source of Specimen:Blood, venous*Venipunc Sonal LoraCMP14+CBC/D/PLT+TSH [id number] 19:06:00 Test Item Value Reference Range Interpretation Comments GLUCOSE, SERUM 95 mg/dL 65-99 (test code = 2345-7) BUN (test code = 14 mg/dL 8-27 3094-0) CREATININE, SERUM 0.66 mg/dL 0.57-1.00 (test code = 2160-0) EGFR IF NONAFRICN 85 mL/min/1.73 >59 AM (test code = 25678-6) EGFR IF AFRICN AM 99 mL/min/1.73 >59 [facility] currently (test code = [place] [address]-9) compliance with the current ?recommendation s of the [facility]. Lab amanda will ?update reporting as ne w guidelines are published from the NKF-ASN ?Task force. BUN/CREATININE 12-28 RATIO (test code = 3097-3) SODIUM, SERUM (test 141 mmol/L 134-144 code = 2951-2) POTASSIUM, SERUM 4.5 mmol/L 3.5-5.2 (test code = 2823-3) CHLORIDE, SERUM 103 mmol/L 96-106 (test code = 2075-0) CARBON DIOXIDE, 26 mmol/L 20-29 TOTAL (test code = 2027-9) CALCIUM, SERUM 10.0 mg/dL 8.7-10.3 (test code = 56745-4) PROTEIN, TOTAL, 6.7 g/dL 6.0-8.5 SERUM (test code = 2885-2) ALBUMIN, SERUM 4.0 g/dL 3.7-4.7 (test code = 1751-7) GLOBULIN, TOTAL 2.7 g/dL 1.5-4.5 (test code = 79978-6) A/G RATIO (test 1.2-2.2 code = 1759-0) BILIRUBIN, TOTAL 0.8 mg/dL 0.0-1.2 (test code = 1975-2) ALKALINE See_Comment Please note PHOSPHATASE, SERUM reference interval (test code = change [Autom ated 9643-6) message] The sy stem which generated this result transmitted reference range : 44 - 121 IU/L. The reference range was not used to interpret this result as normal/abnormal . AST (SGOT) (test See_Comment [Automated code = 1920-8) message] The system which generated this result transmitted reference range : 0 - 40 IU/L. The reference range was not used to interpret this result as normal/abnormal . ALT (SGPT) (test See_Comment [Automated code = 5182-6) message] The system which generated this result transmitted reference range : 0 - 32 IU/L. The reference range was not used to interpret this result as normal/abnormal . TSH (test code = See_Comment [Automated 90599-4) message] The sy stem which generated this result transmitted reference range : 0.450 - 4.500 uIU/mL. The reference range was not used to interpret this result as normal/abnormal . WHITE BLOOD CELL CANCELED Test not pe rformed (WBC) COUNT (test Result can celed by code = 6690-2) the ancillary . RED BLOOD CELL CANCELED Test not perf ormed (RBC) COUNT (test Result can celed by code = 789-8) the ancillary. HEMOGLOBIN (test CANCELED Test not pe rformed code = 718-7) Result cancele d by the ancillary. HEMATOCRIT (test CANCELED Test not pe rformed code = 4544-3) Result cancel ed by the ancillary. PLATELETS (test CANCELED Test not per formed code = 777-3) Result cancele d by the ancillary. NEUTROPHILS (test CANCELED Test not p erformed code = 770-8) Result cancele d by the ancillary. LYMPHS (test code = CANCELED Test not performed 736-9) Result canceled by the ancillary. MONOCYTES (test CANCELED Test not per formed code = 5905-5) Result cancel ed by the ancillary. EOS (test code = CANCELED Test not pe rformed 713-8) Result canceled by the ancillary. LYMPHS (ABSOLUTE) CANCELED Test not p erformed (test code = 731-0) Result c anceled by the ancillary. EOS (ABSOLUTE) CANCELED Test not perf ormed (test code = 711-2) Result c anceled by the ancillary. BASO (ABSOLUTE) CANCELED Test not per formed (test code = 704-7) Result c anceled by the ancillary. ARTURO (test code = [facility] results ARTURO) reported in Eastern Time. [facility] Clinical Information:SRC: Blood, venous*Venipunc ture ? L[facility] Source of Specimen:Blood, venous*Venipunc Sonal SeyboldHGB A1C WITH MBG [id number] 14:04:00 Test Item Value Reference Range Interpretation Comments HEMOGLOBIN A1C (test 5.6 % 4.8-5.6 ? code = 4548-4) ? . ? Prediabetes: 5. 7 - 6.4 ? Diabetes: >6.4 ? Glycemic control for adults with diabetes: <7.0 ESTIM. AVG GLU (EAG) 114 mg/dL (test code = 58390-5) ARTURO (test code = [facility] results ARTURO) reported in Eastern Time. [facility] Clinical Information:SRC:B lood, venous*Venipunc ture ? L[facility] Source of Specimen:Blood, venous*Venipunc Sonal SeyboldURINALYSIS, [id number] 10:09:00 Test Item Value Reference Range Interpretation Comments SPECIFIC GRAVITY 1.005-1.030 (test code = 2965-2) PH (test code = 5.0-7.5 5803-2) URINE-COLOR (test Yellow Yellow code = 5778-6) APPEARANCE (test Clear Clear code = 5767-9) WBC ESTERASE (test Negative Negative code = 5799-2) PROTEIN (test code Negative Negative/Trace = 10611-9) GLUCOSE (test code Negative Negative = 2349-9) KETONES (test code Negative Negative = 2514-8) OCCULT BLOOD (test Negative Negative code = 5794-3) BILIRUBIN (test Negative Negative code = 5770-3) UROBILINOGEN,SEMI-Q 1.0 mg/dL 0.2-1.0 N (test code = 01458-1) NITRITE, URINE Negative Negative (test code = 5802-4) MICROSCOPIC Microscopic not EXAMINATION (test indicated and not code = 10003-9) performed. ARTURO (test code = [facility] results ARTURO) reported in Eastern Time. [facility] Clinical Information:SRC: Urine ?LCA Source of Specimen:Urine Sonal Lora
[2022-07-26] MEDS ORDERED: MECLIZINE HCL 12.5 MG TAB ONE (10:05)
[2022-07-26 10:15] LABS: Absolute Lymphocytes (CBC) 2.6 K/uL (0.7-4.9); Hematocrit 40.6 % (36.0-45.0); Lymphocytes % 24.5 % (15.3-44.8); MCV 92.2 fL (80-100); MPV 7.5 fL (7.6-11.3); RBC Red Blood Cell Count 4.41 M/uL (3.86-4.86)
[2022-07-26 10:43] LABS: Potassium 3.7 mmol/L (3.5-5.1); Troponin High Sensitivity 26.7 pg/mL (<58.9)
--- NOTE | 2022-07-26 11:24 | RAD REPORT ---
EXAM DESCRIPTION: CT - Head Brain Wo Cont - 07/26/2022 11:08 am CLINICAL HISTORY: dizziness COMPARISON: Head angio dated 07/26/2022 TECHNIQUE: All CT scans are performed using dose optimization technique as appropriate and may inclu de automated exposure control or mA/KV adjustment according to patient size. FINDINGS: No intracranial hemorrhage, hydrocephalus or extra-axial fluid collection.No areas of brai n edema or evidence of midline shift. The paranasal sinuses and mastoids are clear. The calvarium is intact. IMPRESSION: No acute intracranial abnormality.
--- NOTE | 2022-07-26 11:29 | RAD REPORT ---
EXAM DESCRIPTION: CT - Head angio - 07/26/2022 11:10 am CLINICAL HISTORY: dizziness COMPARISON: No comparisons TECHNIQUE: CT angiography of the head was performed with MIPs. All CT scans are performed using dose optimization technique as appropriate and may include automated exposure control or mA/KV adjustment according to patient size. FINDINGS: Anterior circulation: No aneurysm or large vessel occlusion. No hemodynamically significant stenosis. No arteriovenous malf ormation identified. Posterior circulation: type right [employer]. No aneurysm or large vessel occlusion. No hemodynamically significant stenosis. No arteriovenous malformation identified. IMPRESSION: No significant flow abnormality is detected.
--- NOTE | 2022-07-26 11:30 | RAD REPORT ---
EXAM DESCRIPTION: CT - Neck Angio - 07/26/2022 11:10 am CLINICAL HISTORY: dizziness COMPARISON: No comparisons TECHNIQUE: CT angiography of the neck vessels was performed with MIPs. All CT scans are performed using dose optimization technique as appropriate and may include automated exposure control or mA/KV adjustment according to patient size. FINDINGS: A left aortic arch is identified with normal three vessel configuration of the great vesse ls. No significant flow abnormality is seen of the common carotid bilaterally. No significant stenosis is identified involving the cervical segments of both internal carotid arteri es. Normal flow is seen within both vertebral arteries. Left dominant vertebral artery. IMPRESSION: No significant flow abnormality of the neck vessels is identified.
--- NOTE | 2022-07-26 13:05 | ER ---
Nurse's Notes [facility] Name: Alessandra Marie Age: 77 yrs Sex: Female : 1945 Arrival Date: 07/26/2022 Time: 09:30 Bed 18 Private MD: Diagnosis: Vertigo Presentation: 07/26 09:38 Chief complaint: EMS states: "pt started feeling dizzy at 0400 am and it comes and mb9 goes." Pt states "when it happens, my head feels like its going everywhere. My left hand te feels like its tingling". Coronavirus screen: Vaccine status: Patient reports receiving the 2nd dose of the covid vaccine. Ebola Screen: No symptoms or risks identified at this time. Initial Sepsis Screen: Does the patient meet any 2 criteria? No. Patient's initial sepsis screen is negative. Does the patient have a suspected source of infection? No. Patient's initial sepsis screen is negative. Risk Assessment: Do you want to hurt yourself or someone else? Patient reports no desire to harm self or others. Onset of symptoms was July 26, 2022. 09:38 Method Of Arrival: EMS: [facility] mb9 09:38 Acuity: NAYELI 3 mb9 09:44 Care prior to arrival: IV initiated. 18 GA, 20 GA, in the left in the right antecubital mb9 area, hand, Glucose check: 131. 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 - Social history:: Smoking status: Patient/guardian denies using tobacco, but has a distant history of tobacco abuse. Screenin:30 [facility] ED Fall Risk Assessment (Adult) History of falling in the last 3 months, mb9 including since admission No falls in past 3 months (0 pts) Confusion or Disorientation No (0 pts) Intoxicated or Sedated No (0 pts) Impaired Gait No (0 pts) Mobility Assist Device Used No (0 pt) Altered Elimination No (0 pt) Score/Fall Risk Level 0 - 2 = Low Risk Oriented to surroundings, Maintained a safe environment, Educated pt \\T\\ family on fall prevention, incl call for assistance when getting out of bed. Abuse screen: Denies threats or abuse. Nutritional screening: No deficits noted. Tuberculosis screening: No symptoms or risk factors identified. Assessment: 09:49 General: Appears in no apparent distress. comfortable, Behavior is calm, cooperative, mb9 appropriate for age. Pain: Denies pain. Neuro: Arriaga Agitation-Sedation Scale (RASS): 0 - Alert and Calm Level of Consciousness is awake, alert, obeys commands, Oriented to person, place, time, situation, Appropriate for age Dental Receptionist are equal bilaterally Moves all extremities. Gait is steady, Speech is normal, Facial symmetry appears normal, Pupils are PERRLA, Intact Reports weakness. Neuro: nystagmus noted. Cardiovascular: Heart tones S1 S2 present Capillary refill < 3 seconds is brisk Patient's skin is warm and dry. Rhythm is regular. Respiratory: Airway is patent Respiratory effort is even, unlabored, Respiratory pattern is regular, symmetrical, Breath sounds are clear bilaterally. GI: Abdomen is round non-distended, Bowel sounds present X 4 quads. Abd is soft and non tender X 4 quads. : No signs and/or symptoms were reported regarding the genitourinary system. EENT: No signs and/or symptoms were reported regarding the EENT system. Derm: Skin is pink, warm \\T\\ dry. Musculoskeletal: Range of motion: intact in all extremities. 10:40 Reassessment: No changes from previously documented assessment. Patient and/or family mb9 updated on plan of care and expected duration. Pain level reassessed. Patient is alert, oriented x 3, equal unlabored respirations, skin warm/dry/pink. 11:47 Reassessment: No changes from previously documented assessment. Patient and/or family mb9 updated on plan of care and expected duration. Pain level reassessed. Patient is alert, oriented x 3, equal unlabored respirations, skin warm/dry/pink. Patient states feeling better. Patient states symptoms have improved. 12:43 Reassessment: No changes from previously documented assessment. Patient and/or family mb9 updated on plan of care and expected duration. Pain level reassessed. Patient is alert, oriented x 3, equal unlabored respirations, skin warm/dry/pink. ambulated with pt. Pt states "I feel a little weak but other than that I feel fine. I don't feel dizzy or like I did this morning" Patient states feeling better. Patient states symptoms have improved. 13:36 Reassessment: No changes from previously documented assessment. Patient and/or family mb9 updated on plan of care and expected duration. Pain level reassessed. Patient is alert, oriented x 3, equal unlabored respirations, skin warm/dry/pink. Patient states feeling better. Patient states symptoms have improved. Vital Signs: 09:38 BP 157 / 74; Pulse 80; Resp 18; Temp 97.3; Pulse Ox 100% ; Weight 67.13 kg; Height 5 mb9 ft. 0 in. (152.40 cm); Pain 5/10; 11:40 BP 138 / 59; Pulse 80; Resp 18; Pulse Ox 100% ; mb9 13:36 BP 139 / 61; Pulse 74; Resp 16; Pulse Ox 100% ; mb9 09:38 Body Mass Index 28.90 (67.13 kg, 152.40 cm) mb9 NIH Stroke Scale Scores: 09:42 NIHSS Score: 0 mb9 ED Course: 09:30 Patient arrived in ED. as 09:30 Arm band placed on. mb9 09:33 Theodore Murray PA is PHCP. [facility] 09:33 Kris Palomares MD is Attending Physician. [facility] 09:38 Eduarda Weiner, RN is Primary Nurse. mb9 09:40 Triage completed. mb9 09:42 Placed in gown. Bed in low position. Call light in reach. Side rails up X 1. Client mb9 placed on continuous cardiac and pulse oximetry monitoring. NIBP monitoring applied. 10:14 Basic Metabolic Panel Sent. mb9 10:14 CBC with Diff Sent. mb9 10:14 Troponin HS Sent. mb9 11:10 CT Head Brain wo Cont In Process Unspecified. EDMS 11:12 CT Head Angio In Process Unspecified. EDMS 11:12 CT Neck Angio In Process Unspecified. EDMS 13:04 Moises Velez MD is Referral Physician. jmm 13:04 Vivi Wolf MD is Referral Physician. jmm 13:37 No provider procedures requiring assistance completed. IV discontinued, intact, mb9 bleeding controlled, No redness/swelling at site. Pressure dressing applied. Administered Medications: 10:14 Drug: Meclizine 50 mg Route: PO; mb9 10:32 Follow up: Response: No adverse reaction mb9 Medication: 09:30 VIS not applicable for this client. mb9 Outcome: 13:04 Discharge ordered by . cuong 13:37 Discharged to home ambulatory. mb9 13:37 Condition: stable 13:37 Discharge instructions given to patient, Instructed on discharge instructions, follow up and referral plans. Demonstrated understanding of instructions, follow-up care, medications, Prescriptions given X 1. 13:37 Patient left the ED. mb9 NIH Stroke Scale - NIH Stroke Score Date: 07/26/2022 Time: 09:42 Total Score = 0 1a. Level of Consciousness (LOC) - 0(Alert) 1b. Level of Consciousness (LOC) (Month \\T\\ Age) - 0(Both) 1c. LOC Commands (Open \\T\\ Closes Eyes/Oracle Ascp Consultant) - 0(Both) 2. Best Gaze (Lateral Gaze Paresis) - 0(Normal) 3. Visual Field Loss - 0(No visual loss) 4. Facial Palsy - 0(Normal) 5a. Left Arm: Motor (10-second hold) - 0(No drift) 5b. Right Arm: Motor (10-second hold) - 0(No drift) 6a. Left Leg: Motor (5-second hold - always test supine) - 0(No drift) 6b. Right Leg: Motor (5-second hold - always test supine) - 0(No drift) 7. Limb Ataxia (finger/nose \\T\\ heel/thacker - test with eyes open) - 0(Absent) 8. Sensory Loss (pinprick arms/legs/face) - 0(Normal) 9. Best Language: Aphasia (description/naming/reading) - 0(No aphasia) 10. Dysarthria (speech clarity - read or repeat words) - 0(Normal) 11. Extinction and Inattention (visual/tactile/auditory/spatial/personal) - 0(No abnormality) Initials: mb9 Signatures: Dispatcher [employer] EDTheodore Sanchez PA PA jmm Martinez, Amelia as Breneman, Eduarda Chapman, RN RN mb9
--- NOTE | 2022-07-26 13:05 | EDPHYS ---
Physician Documentation [facility] Name: Alessandra Marie Age: 77 yrs Sex: Female : 1945 Arrival Date: 07/26/2022 Time: 09:30 Bed 18 Private MD: ED Physician Kris Palomares HPI: 07/26 09:47 This 77 yrs old Female presents to ER via EMS with complaints of Weakness. [facility] 09:47 This is a 77-year-old female with history of aortic torsion with no stenosis the jmm presents emerged department with complaints of cute onset dizziness which she noticed around 4 AM this morning. Patient describes this as the room spinning. Patient having generalized weakness and difficulty standing along with nausea as well. Denies any slurred speech, unilateral weakness.. 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 - Social history:: Smoking status: Patient/guardian denies using tobacco, but has a distant history of tobacco abuse. ROS: 09:47 Cardiovascular: Negative for chest pain, palpitations, and edema, Respiratory: Negative [facility] for shortness of breath, cough, wheezing, and pleuritic chest pain. 09:47 Constitutional: Positive for fatigue. 09:47 Neuro: Positive for dizziness, weakness. 09:47 All other systems are negative. Exam: 09:47 Constitutional: This is a well developed, well nourished patient who is awake, alert, jmm and in no acute distress. Head/Face: atraumatic. ENT: Moist Mucus Membranes Neck: Trachea midline, Supple Chest/axilla: Normal chest wall appearance and motion. Cardiovascular: Regular rate and rhythm. No edema appreciated Respiratory: Normal respirations, no respiratory distress appreciated Abdomen/GI: Non distended Back: Normal ROM 09:47 Skin: General appearance color normal MS/ Extremity: Moves all extremities, no obvious deformities appreciated, no edema noted to the lower extremities 09:47 Eyes: Nystagmus: nystagmus with fast component noted, bilaterally. 09:47 Neuro: Orientation: is normal, Mentation: is normal, Memory: is normal, Cerebellar function: normal finger to nose testing, heel to thacker testing is normal. 09:47 Psych: Behavior/mood is pleasant, cooperative. Vital Signs: 09:38 BP 157 / 74; Pulse 80; Resp 18; Temp 97.3; Pulse Ox 100% ; Weight 67.13 kg; Height 5 mb9 ft. 0 in. (152.40 cm); Pain 5/10; 11:40 BP 138 / 59; Pulse 80; Resp 18; Pulse Ox 100% ; mb9 13:36 BP 139 / 61; Pulse 74; Resp 16; Pulse Ox 100% ; mb9 09:38 Body Mass Index 28.90 (67.13 kg, 152.40 cm) mb9 NIH Stroke Scale Scores: 09:42 NIHSS Score: 0 mb9 MDM: 09:47 Patient medically screened. cuong 13:02 Data reviewed: vital signs, nurses notes. Historians other than the Patient: cuong Spouse/Significant Other: Spouse. Counseling: I had a detailed discussion with the patient and/or guardian regarding: the historical points, exam findings, and any diagnostic results supporting the discharge/admit diagnosis, lab results, radiology results, to return to the emergency department if symptoms worsen or persist or if there are any questions or concerns that arise at home. Response to treatment: the patient's symptoms have markedly improved after treatment, and as a result, I will discharge patient. ED course: Patient's condition improved with meclizine. Patient is now able to ambulate without difficulty. Cerebellar exam was normal. CTA was negative. I do not currently suspect a central cause of the vertigo. Patient is advised to follow-up with ENT and neurology for further evaluation otherwise given strict return precautions. Patient and family understood and agrees plan of care.. 07/26 09:49 Order name: Basic Metabolic Panel; Complete Time: 10:45 [facility] 07/26 09:49 Order name: CBC with Diff; Complete Time: 10:39 [facility] 07/26 09:49 Order name: Troponin HS; Complete Time: 10:45 [facility] 07/26 09:50 Order name: CT Head Brain wo Cont; Complete Time: 11:26 [facility] 07/26 09:50 Order name: CT Head Angio; Complete Time: 11:32 [facility] 07/26 09:50 Order name: CT Neck Angio; Complete Time: 11:32 [facility] 07/26 09:49 Order name: EKG; Complete Time: 09:50 [facility] 07/26 09:49 Order name: Cardiac monitoring; Complete Time: 09:49 [facility] 07/26 09:49 Order name: EKG - Nurse/Tech; Complete Time: 10:32 [facility] 07/26 09:49 Order name: IV Saline Lock; Complete Time: 09:49 [facility] 07/26 09:49 Order name: Labs collected and sent; Complete Time: 10:14 [facility] 07/26 09:49 Order name: O2 Per Protocol; Complete Time: 09:49 [facility] 07/26 09:49 Order name: O2 Sat Monitoring; Complete Time: 09:49 [facility] 07/26 12:00 Order name: Misc. Order: ambulate patient; Complete Time: 12:11 [facility] Administered Medications: 10:14 Drug: Meclizine 50 mg Route: PO; 9 10:32 Follow up: Response: No adverse reaction 9 Disposition: 07/27 13:30 Co-signature as Attending Physician, Kris Palomares MD I reviewed the patient's care rn provided by the Advanced Practice Provider and agree with the diagnosis and treatment plan. Disposition Summary: 07/26/22 13:04 Discharge Ordered Location: Home [facility] Condition: Stable [facility] Diagnosis - Vertigo [facility] Followup: [facility] - With: Moises Velez MD - When: 2 - 3 days - Reason: Recheck today's complaints, Continuance of care, Re-evaluation by your physician Followup: [facility] - With: Vivi Wolf MD - When: 2 - 3 days - Reason: Recheck today's complaints, Continuance of care, Re-evaluation by your physician Discharge Instructions: - Discharge Summary Sheet [facility] - Benign Positional Vertigo [facility] - Vertigo [facility] - How to Perform the Eliseo Maneuver [facility] Forms: - Medication Reconciliation Form [facility] - Thank You Letter [facility] - Antibiotic Education [facility] - Prescription Opioid Use [facility] Prescriptions: - Meclizine 25 mg Oral Tablet - take 1 tablet by ORAL route every 8 hours As needed; 30 tablet; Refills: 0, [facility] Product Selection Permitted NIH Stroke Scale - NIH Stroke Score Date: 07/26/2022 Time: 09:42 Total Score = 0 1a. Level of Consciousness (LOC) - 0(Alert) 1b. Level of Consciousness (LOC) (Month \T\ Age) - 0(Both) 1c. LOC Commands (Open \T\ Closes Eyes/Financial Advocate) - 0(Both) 2. Best Gaze (Lateral Gaze Paresis) - 0(Normal) 3. Visual Field Loss - 0(No visual loss) 4. Facial Palsy - 0(Normal) 5a. Left Arm: Motor (10-second hold) - 0(No drift) 5b. Right Arm: Motor (10-second hold) - 0(No drift) 6a. Left Leg: Motor (5-second hold - always test supine) - 0(No drift) 6b. Right Leg: Motor (5-second hold - always test supine) - 0(No drift) 7. Limb Ataxia (finger/nose \T\ heel/thacker - test with eyes open) - 0(Absent) 8. Sensory Loss (pinprick arms/legs/face) - 0(Normal) 9. Best Language: Aphasia (description/naming/reading) - 0(No aphasia) 10. Dysarthria (speech clarity - read or repeat words) - 0(Normal) 11. Extinction and Inattention (visual/tactile/auditory/spatial/personal) - 0(No abnormality) Initials: mb9 Signatures: Dispatcher [employer] Theodore Quiroz PA PA jmm Nieto, Roman, MD MD rn Breneman, Mary Beth, RN RN mb9
--- NOTE | 2022-07-28 16:56 | EKG ---
Test Date: 2022-07-26 Test Time: 10:29:43 Toucher Up: MB MEASUREMENT RESULTS: Intervals: Rate: 64 SC: 176 QRSD: 94 QT: 410 QTc: 422 [place]: P: 61 SC: 176 QRS: 39 T: 47 INTERPRETIVE STATEMENTS: Normal sinus rhythm Normal ECG No previous ECG available for comparison Electronically Signed On 07-28-22 16:54:47 SYSTEM INTEGRATION ENGINEER by Jose Angel Vazquez
== END 2022-07-26 13:37 | disposition home or self-care (01) ==
LOC: ER 09:29
DX: R42 Dizziness and giddiness (principal); R53.1 Weakness; Z88.0 Allergy status to penicillin
CPT/HCPCS: 36415; 70450; 70496; 70498; 80048; 84484; 85025; 93005; 99284; J8597; Q9967

== ENCOUNTER 2023-05-17 20:22 | Emergency (ER) | payer OTHER ==
--- OUTSIDE RECORDS SUMMARY | 2023-05-17 20:28 | XMS REPORT | Continuity of Care Document ---
:1945 Author Organization [facility] t Address [address] [facility] [address] [place] [address] Care Team Providers Name Role Phone COCO REAL Primary Care Physician Unavaila DERRICK Brown Attending Clinician Unavailable PROVIDER, EVISIT Attending Clinician Unavailable COCO REAL Attending Clinician Unavailable LJ GILL Attending Clinician Unavailable LISA NORWOOD Attending Clinician Unavailable SIMON RASHID Attending Clinician Unavailable JAMIE COSTELLO Attending Clinician Unavailable MAXX JOHNSON Attending Clinician Unavailable MAXX JOHNSON Attending Clinician Unavailable Maxx Johnson MD Attending Clinician Unavailable Catracho Dubon MD Attending Clinician ROXIE TORRES Attending Clinician Unavailable CATRACHO DUBON Attending Clinician Unavailable MD LARISSA Attending Clinician Unavailable [id number] Attending Clinician Unavailable [id number] Attending Clinician Unavailable [id number] Attending Clinician Unavailable Lisa Norwood MD Attending Clinician [phone] Derrick Pierson DO Attending Clinician Elena Galvez MD Attending Clinician MAXX JOHNSON Admitting Clinician Unavailable Payers Payer Name Policy Type Policy Number Effective Date Expiration Date S neto ADAM 7 [id number] 2021 PLUS 42 OA 00:00:00 [employer] MEDICARE [id number] 2021 ADV 00:00:00 Problems Condition Condition Condition [...] 00:00: - veins of 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 s s Risk for Risk for Disease Active 2021-07 Kelse y falls falls 0-11 Seybold 00:00: - 00 Externa l Seasonal Seasonal Disease Active Kelse y allergic allergic 7-12 Seybol d rhinitis rhinitis 00:00: - due to due to 00 Externa pollen pollen l Hypertensi Hypertensi Disease Active 2020-07 Kathryn coellocesar on, on, 0-07 Seybold essential essential 00:00: - 00 Externa l 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 6-30 Se ybold asthma asthma 00:00: - without without 00 Externa complicati complicati l on on ([facility]) ([facility]) GERD GERD Disease Active Sonal (gastroeso (gastroeso 1-23 Se ybold phageal phageal 00:00: - reflux reflux 00 Externa disease) disease) l 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 The 10 yr probabili ty of fracture ( %):Major osteoporo tic- 5.4Hip fracture- 1.1 Allergies, Adverse Reactions, Alerts Allergy Allergy Status Severity Reaction(s) Onset Inactive Treating Comm ents Source Name Type Date Date Clinician [facility] Allergy [facility] Propensi Active Hives, Other Pt stat es [facility] ([facility] also [facility] adverse Comments) 00:00: passed Medica l reaction 00 out. Center s [facility] Drug Active Other Pt states Kelse y ins Allergy 02-10 she also Seybold 00:00: passed 00 out. [facility] Drug Active Other Pt states Kelse y ins Allergy 02-10 she also Seybold 00:00: passed - 00 out. Externa l Social History Social Habit Start Date Stop Date Quantity Comments Source Exposure to Not sure Sonal greene SARS-CoV-2 (event) Gender identity Sonal hernandez - External History SDOH [facility] Alcohol Frequency Medical Center History SDOH [facility] Alcohol Std Drinks Medica l Center History SDOH [facility] Alcohol Binge Medical Any ter History SDOH [facility] Transport Non-Med Medical Center Sexual orientation [facility] History of tobacco Current smoker [facility] use [facility] Center Cigarette 2023-04-21 2023-04-21 Sonal Monkybbrady pack-years 00:00:00 00:00:00 - External Tobacco Comment 2022-10-15 2022-10-15 2 -3 Sonal Monk ybbrady 00:00:00 00:00:00 - External Alcohol intake 2022-06-19 2022-06-19 [facility] (finding) History of Social 2022-06-19 2022-06-[address] [facility] function 00:00:00 00:00:00 Medical Center Alcohol Comment 2022-06-11 2022-06-[address] [facility] 00:[facility]00 Medical Center Tobacco use and 2022-06-11 2022-06-11 [address] [facility] exposure 00:00:00 00:00:00 non-user Medical Center History [facility] 2022-06-11 2022-06-[address] [facility] Transport Med 00:00:00 00:00:[address] History [facility] 2022-06-11 2022-06-[address] [facility] Unable to 00:00:00 00:00:00 Medical Center Pay History [facility] 2022-06-11 2022-06-[address] [facility] Places 00:00:00 00:00:00 Medical Ce nter Lived History [facility] 2022-06-11 2022-06-[address] [facility] Homeless 00:00:00 00:00:00 Medical Center Last Year Cigarettes smoked 2022-06-11 2022-06-11 M[facility] Franco current (pack per 00:00:00 00:00:00 Medical Center day) - Reported Education 2022-04-15 2022-04-15 16 Sonal Lora 00:00:00 00:00:00 - External Sex [birth year] M[facility] Raos 00:00:00 00:00:00 Medical Center Smoking Status Start Date Stop Date Source Ex-smoker 2023-04-21 00:00:00 2023-04-21 00:00:00 Sonal gao - External Smokes tobacco daily 2022-04-15 00:00:00 Sonal Lora - External Medications Ordered Filled Start Stop Current Ordering Indication Dosage Frequency Signature Comments Components Source Medication Medication Date Date Medication? Clinician (SIG) Name Name Aspirin 81 2022-07 Yes 81mg Take 1 Kelse y MG oral 0-17 tablet (81 Seybol d Chewable 14:18: mg total) - Tablet 33 by mouth Externa daily l Magnesium 2022-07 Yes Take by Kelse y 500 MG oral 0-17 mouth as Seyb old Capsule 14:18: needed - 33 Externa l Cholecalcif 2022-07 Yes 2000U Take 1 Claus sey keke 0-17 capsule Seybold (Vitamin D) 14:18: (2,000 - 50 MCG 33 units Externa (1999 UT) total) by l oral mouth Capsule daily Benzonatate 2022-07 Yes [id number] 100mg Q.[id number] Take 1 Sonal (Tessalon 0-17 [id number] capsule S sima Ruiz) 100 00:00: 3D (100 mg - MG oral 00 total) by Externa Capsule mouth 3 l times daily as needed for cough. Azithromyci 2022-07 202- Yes [id number] Take 2 Sonal n 250 MG 0-17 10-23 tablets by Seyb old oral Tablet 00:00: 04:59 mouth on - 00 :00 day 1 then Externa 1 tablet l by mouth daily for 4 days thereafter .. FLUTICASONE 2022-0 Yes [id number] 100ug Use 2 Sonal PROPIONATE, 8-15 sprays Seybol d NASAL, 50 00:00: (100 mcg - MCG/ACT 00 total) in Externa nasal each l Suspension nostril daily Aspirin 81 2022-0 Yes 81mg Take 1 Kelse y MG oral 4-12 tablet (81 Seybol d Chewable 14:56: mg total) - Tablet 42 by mouth Externa daily l Magnesium 2022-0 Yes Take by Kelse y 500 MG oral 4-12 mouth as Seyb old Capsule 14:56: needed - 42 Externa l Cholecalcif 2022-0 Yes 2000U Take 1 Claus sey keke 4-12 capsule Seybold (Vitamin D) 14:56: (2,000 - 50 MCG 42 units Externa (1999 UT) total) by l oral mouth Capsule daily Famotidine 2022-0 Yes [id number] 20mg TAKE 1 Sonal (PEPCID) 20 2-15 TABLET (20 Se ybold MG oral 00:00: MG TOTAL) - tablet 00 BY MOUTH Externa IN THE l MORNING AND 1 TABLET (20 MG TOTAL) IN THE EVENING. Famotidine 2022-0 Yes [id number] 20mg TAKE 1 Sonal (PEPCID) 20 2-15 TABLET (20 Se ybold MG oral 00:00: MG TOTAL) - tablet 00 BY MOUTH Externa IN THE l MORNING AND 1 TABLET (20 MG TOTAL) IN THE EVENING. Aspirin 81 2022-0 Yes 81mg Take 81 mg K elsey MG oral 1-25 by mouth Seybold Chewable 14:53: daily - Tablet 10 Externa l Magnesium 2022-0 Yes Take by Kelse y 500 MG oral 1-25 mouth as Seyb old Capsule 14:53: needed - 10 Externa l Cholecalcif 2022-0 Yes 2000U Take 2,000 Sonal keke 1-25 units by Seybold (Vitamin D) 14:53: mouth - 50 MCG 10 daily Externa (1999 UT) l oral Capsule Meclizine 2022-0 Yes 25mg Q.[id number] Take 25 mg Sonal HCl 25 MG 1-21 [id number] by mouth Seybold oral Tablet 00:00: 3D every 8 - 00 hours as Externa needed l Meclizine 2022-0 Yes 25mg Q.[id number] Take 1 Sonal HCl 25 MG 1-21 [id number] tablet (25 Seybold oral Tablet 00:00: 3D mg total) - 00 by mouth Externa every 8 l hours as needed Meclizine 2022-0 Yes 25mg Q.[id number] Take 1 Sonal HCl 25 MG 1-21 [id number] tablet (25 Seybold oral Tablet 00:00: 3D mg total) - 00 by mouth Externa every 8 l hours as needed lisinopriL 2021-07 Yes 10mg QD Take [address] (PRINIVIL,Z 2-07 by mouth Luke s ESTRIL) 10 21:50: daily. Medic al MG tablet 07 Center famotidine 2021-07 Yes 20mg Take [address] (PEPCID) 20 2-07 by mouth Luke s MG tablet 21:50: every Medical 07 night as Center needed for Heartburn. aspirin 81 2021-07 Yes 81mg QD Take [address] MG chewable 2-07 by mouth Luke s tablet 21:50: daily. Medical 07 Center lisinopriL 2021-07 Yes 10mg QD Take [address] (PRINIVIL,Z 2-07 by mouth Luke s ESTRIL) 10 21:50: daily. Medic al MG tablet 07 Center famotidine 2021-07 Yes 20mg Take [address] (PEPCID) 20 2-07 by mouth Luke s MG tablet 21:50: every Medical 07 night as Center needed for Heartburn. aspirin 81 2021-07 Yes 81mg QD Take [address] MG chewable 2-07 by mouth Luke s tablet 21:50: daily. Medical 07 Center melatonin-p 2021-07- No Take by I yridoxine, 08-12 [facility]. [facility] vit B6, 11:44: 00:00 Medical (MELATONIN, 21 :00 Center WITH B6,) 5-1 mg Tab melatonin-p 2021-07- No Take by I yridoxine, 08-12 mouth. [facility] vit B6, 11:44: 00:00 Medical (MELATONIN, 21 :00 Center WITH B6,) 5-1 mg Tab Lisinopril 2021-07 Yes [id number] TAKE 1 K elsey 10 MG oral 1-29 TABLET BY Seyb old Tablet 00:00: MOUTH - 00 EVERY DAY Externa l Lisinopril 2021-07 Yes [id number] TAKE 1 K elsey 10 MG oral 1-29 TABLET BY Seyb old Tablet 00:00: MOUTH - 00 EVERY DAY Externa l Lisinopril 2021-07 Yes [id number] TAKE 1 K elsey 10 MG oral 1-29 TABLET BY Seyb old Tablet 00:00: MOUTH - 00 EVERY DAY Externa l Levothyroxi 2021-07 Yes TAKE 1 Maribel ey ne Sodium 1-04 TABLET BY Seybo ld 75 MCG oral 00:00: MOUTH - Tablet 00 EVERY DAY Externa l Levothyroxi 2021-07 Yes TAKE 1 Maribel ey ne Sodium 1-04 TABLET BY Seybo ld 75 MCG oral 00:00: MOUTH - Tablet 00 EVERY DAY Externa l Levothyroxi 2021-07 Yes TAKE 1 Maribel ey ne Sodium 1-04 TABLET BY Seybo ld 75 MCG oral 00:00: MOUTH - Tablet 00 EVERY DAY Externa l [place]-3 2021-07 Yes [id number] 1000mg Take 1 K elsey Fatty Acids 0-12 capsule Seybo ld (Fish Oil) 00:00: (1,000 mg - 1000 MG 00 total) by Externa oral mouth 2 l Capsule times daily [place]-3 2021-07 Yes [id number] 1000mg Take 1 K elsey Fatty Acids 0-12 capsule Seybo ld (Fish Oil) 00:00: (1,000 mg - 1000 MG 00 total) by Externa oral mouth 2 l Capsule times daily [place]-3 2021-07- No [id number] 1000mg Take 1 Sonal Fatty Acids 0-12 10-17 capsule Seyb old (Fish Oil) 00:00: 00:00 (1,000 mg - 1000 MG 00 :00 total) by Externa oral mouth 2 l Capsule times daily Melatonin 5 2021-07- No Take by Ke lsey MG oral Tab 0-11 10-11 mouth Seybol d 08:44: 00:00 - 00 :00 Externa l Famotidine Yes [id number] 20mg Take 1 Sonal (PEPCID) 20 5-18 tablet (20 Se ybold MG oral 00:00: mg total) - tablet 00 by mouth Externa in the l morning and 1 tablet (20 mg total) in the evening. Famotidine Yes [id number] 20mg Take 1 Sonal (PEPCID) 20 5-18 tablet (20 Se ybold MG oral 00:00: mg total) - tablet 00 by mouth Externa in the l morning and 1 tablet (20 mg total) in the evening. Melatonin 5 Yes Take by Claus sey MG oral Tab 4-26 mouth Seybold 10:25: 19 Famotidine Yes [id number] 20mg Take 1 Sonal (PEPCID) 20 4-26 tablet (20 Se ybold MG oral 00:00: mg total) tablet 00 by mouth in the morning and 1 tablet (20 mg total) in the evening. Albuterol Yes [id number] 2{puff} Q.25D Inhale 2 Sonal HFA 1-31 puffs into Seybold (VENTOLIN 00:00: the lungs HFA) 108 00 every 6 (90 Base) hours as MCG/ACT IN needed for AERS wheezing or shortness of breath FLUTICASONE Yes [id number] 100ug Use 2 Sonal PROPIONATE, 1-31 sprays Seybol d NASAL, 50 00:00: (100 mcg MCG/ACT 00 total) in nasal each Suspension nostril daily Albuterol Yes [id number] 2{puff} Q.25D Inhale 2 Sonal HFA 1-31 puffs into Seybold (VENTOLIN 00:00: the lungs - HFA) 108 00 every 6 Externa (90 Base) hours as l MCG/ACT IN needed for AERS wheezing or shortness of breath FLUTICASONE Yes [id number] 100ug Use 2 Sonal PROPIONATE, 1-31 sprays Seybol d NASAL, 50 00:00: (100 mcg - MCG/ACT 00 total) in Externa nasal each l Suspension nostril daily Albuterol Yes [id number] 2{puff} Q.25D Inhale 2 Sonal HFA 1-31 puffs into Seybold (VENTOLIN 00:00: the lungs - HFA) 108 00 every 6 Externa (90 Base) hours as l MCG/ACT IN needed for AERS wheezing or shortness of breath FLUTICASONE Yes [id number] 100ug Use 2 Sonal PROPIONATE, 1-31 sprays Seybol d NASAL, 50 00:00: (100 mcg - MCG/ACT 00 total) in Externa nasal each l Suspension nostril daily Albuterol Yes [id number] 2{puff} Q.25D Inhale 2 Sonal HFA 1-31 puffs into Seybold (VENTOLIN 00:00: the lungs - HFA) 108 00 every 6 Externa (90 Base) hours as l MCG/ACT IN needed for AERS wheezing or shortness of breath FLUTICASONE Yes [id number] 100ug Use 2 Sonal PROPIONATE, 1-31 sprays Seybol d NASAL, 50 00:00: (100 mcg - MCG/ACT 00 total) in Externa nasal each l Suspension nostril daily Albuterol Yes [id number] 2{puff} Q.25D Inhale 2 Sonal HFA 1-31 puffs into Seybold (VENTOLIN 00:00: the lungs - HFA) 108 00 every 6 Externa (90 Base) hours as l MCG/ACT IN needed for AERS wheezing or shortness of breath Melatonin 5 2020-07 Yes Take by Claus sey MG oral Tab 2-07 mouth Seybold 10:32: 16 Lisinopril 2020-07 Yes [id number] TAKE 1 K elsey 10 MG oral 2-04 TABLET BY Seyb old Tablet 00:00: MOUTH 00 EVERY DAY Lisinopril 2020-07 Yes [id number] TAKE 1 K elsey 10 MG oral 2-04 TABLET BY Seyb old Tablet 00:00: MOUTH 00 EVERY DAY Lisinopril 2020-07 Yes [id number] TAKE 1 K elsey 10 MG oral 2-04 TABLET BY Seyb old Tablet 00:00: MOUTH - 00 EVERY DAY Externa l Melatonin 5 2020-07 Yes Take by Claus sey MG oral Tab 0-19 mouth Seybold 08:00: 14 Melatonin 5 2020-07 Yes Take by Claus sey MG oral Tab 0-07 mouth Seybold 09:53: 50 Melatonin 5 Yes Take by Claus sey MG oral Tab 9-21 mouth Seybold 08:00: 13 Lisinopril 0 Yes [id number] 10mg Take 1 K elsey 10 MG oral 9-21 tablet (10 Sey bold Tablet 00:00: mg total) 00 by mouth daily Lisinopril Yes [id number] 10mg Take 1 K elsey 10 MG oral 9-21 tablet (10 Sey bold Tablet 00:00: mg total) 00 by mouth daily Lisinopril Yes [id number] 10mg Take 1 K elsey 10 MG oral 9-21 tablet (10 Sey bold Tablet 00:00: mg total) 00 by mouth daily Melatonin 5 Yes Take by Claus sey MG oral Tab 9-07 mouth Seybold 08:15: 36 Triamcinolo 0 Yes [id number] Apply K elsey ne 9-07 sparingly Seybold Acetonide 00:00: BID to 0.1 % apply 00 rash of externally body PRN. Ointment Not for face or folds. Triamcinolo Yes [id number] Apply K elsey ne 9-07 sparingly Seybold Acetonide 00:00: BID to 0.1 % apply 00 rash of externally body PRN. Ointment Not for face or folds. Triamcinolo 0 Yes [id number] Apply K elsey ne 9-07 sparingly Seybold Acetonide 00:00: BID to 0.1 % apply 00 rash of externally body PRN. Ointment Not for face or folds. Triamcinolo 0 Yes [id number] Apply K elsey ne 9-07 sparingly Seybold Acetonide 00:00: BID to 0.1 % apply 00 rash of externally body PRN. Ointment Not for face or folds. Triamcinolo Yes [id number] Apply K elsey ne 9- sparingly Seybold Acetonide 00:00: BID to - 0.1 % apply 00 rash of Exter na externally body PRN. l Ointment Not for face or folds. Triamcinolo Yes [id number] Apply K elsey ne 9- sparingly Seybold Acetonide 00:00: BID to - 0.1 % apply 00 rash of Exter na externally body PRN. l Ointment Not for face or folds. Triamcinolo Yes [id number] Apply K elsey ne 9- sparingly Seybold Acetonide 00:00: BID to - 0.1 % apply 00 rash of Exter na externally body PRN. l Ointment Not for face or folds. Triamcinolo Yes [id number] Apply K elsey ne 9- sparingly Seybold Acetonide 00:00: BID to 0.1 % apply 00 rash of externally body PRN. Ointment Not for face or folds. Triamcinolo Yes [id number] Apply K elsey ne 9- sparingly Seybold Acetonide 00:00: BID to - 0.1 % apply 00 rash of Exter na externally body PRN. l Ointment Not for face or folds. Triamcinolo Yes [id number] Apply K elsey ne - sparingly Seybold Acetonide 00:00: BID to 0.1 % apply 00 rash of externally body PRN. Ointment Not for face or folds. Acyclovir 5 2020- No [id number] Apply 1 Sonal % apply 803-12 applicatio Seybo ld externally 00:00: 00:00 n Cream 00 :00 topically 5 times daily Levothyroxi 0 Yes 75ug Take 1 Maribel ey ne Sodium 8-20 tablet (75 Seyb old 75 MCG oral 00:00: mcg total) Tablet 00 by mouth daily Levothyroxi 0 Yes 75ug Take 1 Maribel ey ne Sodium 8-20 tablet (75 Seyb old 75 MCG oral 00:00: mcg total) Tablet 00 by mouth daily Levothyroxi 2020-0 Yes 75ug Take 1 Maribel ey ne Sodium 8-20 tablet (75 Seyb old 75 MCG oral 00:00: mcg total) Tablet 00 by mouth daily Levothyroxi 2020-0 Yes 75ug Take 1 Maribel ey ne Sodium 8-20 tablet (75 Seyb old 75 MCG oral 00:00: mcg total) Tablet 00 by mouth daily Levothyroxi 2020-0 Yes 75ug Take 1 Maribel ey ne Sodium 8-20 tablet (75 Seyb old 75 MCG oral 00:00: mcg total) - Tablet 00 by mouth Externa daily l Levothyroxi 2020-0 Yes 75ug Take 1 Maribel ey ne Sodium 8-20 tablet (75 Seyb old 75 MCG oral 00:00: mcg total) Tablet 00 by mouth daily Levothyroxi 2020-0 Yes 75ug Take 1 Maribel ey ne Sodium 8-20 tablet (75 Seyb old 75 MCG oral 00:00: mcg total) Tablet 00 by mouth daily Budesonide- 2020-0 Yes [id number] 2{puff} Inhale 2 Sonal Formoterol 3-30 puffs into Sey bold Fumarate 00:00: the lungs (Symbicort) 00 2 times 160-4.5 daily MCG/ACT inhalation Aerosol Budesonide- 2020-0 Yes [id number] 2{puff} Inhale 2 Sonal Formoterol 3-30 puffs into Sey bold Fumarate 00:00: the lungs (Symbicort) 00 2 times 160-4.5 daily MCG/ACT inhalation Aerosol Budesonide- 2020-0 Yes [id number] 2{puff} Inhale 2 Sonal Formoterol 3-30 puffs into Sey bold Fumarate 00:00: the lungs (Symbicort) 00 2 times 160-4.5 daily MCG/ACT inhalation Aerosol Budesonide- 2020-0 Yes [id number] 2{puff} Inhale 2 Sonal Formoterol 3-30 puffs into Sey bold Fumarate 00:00: the lungs (Symbicort) 00 2 times 160-4.5 daily MCG/ACT inhalation Aerosol Budesonide- 2020-0 Yes [id number] 2{puff} Inhale 2 Sonal Formoterol 3-30 puffs into Sey bold Fumarate 00:00: the lungs (Symbicort) 00 2 times 160-4.5 daily MCG/ACT inhalation Aerosol Budesonide- 0 Yes [id number] 2{puff} Inhale 2 Sonal Formoterol 3-30 puffs into Sey bold Fumarate 00:00: the lungs (Symbicort) 00 2 times 160-4.5 daily MCG/ACT inhalation Aerosol Baclofen 10 0 202- No [id number] Take half Sonal MG oral 3- a tablet Seybold Tablet 00:00: 00:00 po tid as 00 :00 needed for low back pain FLUTICASONE 2020- Yes [id number] 2{spray Use 2 Sonal PROPIONATE, 0-13 } sprays in Sey bold NASAL, 50 00:00: each MCG/ACT 00 nostril nasal daily Suspension FLUTICASONE 2019-1 Yes [id number] 2{spray Use 2 Sonal PROPIONATE, 0-13 } sprays in Sey bold NASAL, 50 00:00: each MCG/ACT 00 nostril nasal daily Suspension FLUTICASONE 2019-1 Yes [id number] 2{spray Use 2 Sonal PROPIONATE, 0-13 } sprays in Sey bold NASAL, 50 00:00: each MCG/ACT 00 nostril nasal daily Suspension FLUTICASONE 2020-1 Yes [id number] 2{spray Use 2 Sonal PROPIONATE, 0-13 } sprays in Sey bold NASAL, 50 00:00: each MCG/ACT 00 nostril nasal daily Suspension FLUTICASONE 2020-1 Yes [id number] 2{spray Use 2 Sonal PROPIONATE, 0-13 } sprays in Sey bold NASAL, 50 00:00: each MCG/ACT 00 nostril nasal daily Suspension Albuterol 2020-0 Yes [id number] 2{puff} Q6H Inhale 2 Sonal HFA 3-20 puffs into Seybold (VENTOLIN 00:00: the lungs HFA) 108 00 every 6 (90 Base) hours as MCG/ACT IN needed for AERS wheezing or shortness of breath Spacer/Aero 2020-0 Yes Use with Ke lsey -Holding 3-20 albuterol Seybol d Chambers 00:00: inhaler (OPTICHAMBE 00 R FACE MASK-MEDIUM ) does not apply Misc Albuterol 2020-0 Yes [id number] 2{puff} Q6H Inhale 2 Sonal HFA 3-20 [...] l MASK-MEDIUM ) does not apply Misc Spacer/Aero 2020-0 Yes Use with Ke lsey -Holding 3-20 albuterol Seybol d Chambers 00:00: inhaler - (OPTICHAMBE 00 Externa R FACE l MASK-MEDIUM ) does not apply Misc Albuterol 2020-0 Yes [id number] 2{puff} Q6H Inhale 2 Sonal HFA 3-20 [...] l MASK-MEDIUM ) does not apply Misc Spacer/Aero 2020-0 Yes Use with Ke lsey -Holding 3-20 albuterol Seybol d Chambers 00:00: inhaler - (OPTICHAMBE 00 Externa R FACE l MASK-MEDIUM ) does not apply Misc Albuterol 2020-0 Yes [id number] 2{puff} Q6H Inhale 2 Sonal HFA 3-20 puffs into Seybold (VENTOLIN 00:00: the lungs HFA) 108 00 every 6 (90 Base) hours as MCG/ACT IN needed for AERS wheezing or shortness of breath Spacer/Aero 2020-0 Yes Use with Ke lsey -Holding 3-20 albuterol Seybol d Chambers 00:00: inhaler (OPTICHAMBE 00 R FACE MASK-MEDIUM ) does not apply Misc Albuterol 2019-0 Yes [id number] 2{puff} Q6H Inhale 2 Sonal HFA 3-20 puffs into Seybold (VENTOLIN 00:00: the lungs HFA) 108 00 every 6 (90 Base) hours as MCG/ACT IN needed for AERS wheezing or shortness of breath Spacer/Aero 2020-0 Yes Use with Ke lsey -Holding 3-20 albuterol Seybol d Chambers 00:00: inhaler (OPTICHAMBE 00 R FACE MASK-MEDIUM ) does not apply Misc levothyroxi 0 Yes 75ug Take [address] [facility] 8-06 [facility]cg by [facility] (SYNTHROID, 00:00: mouth Medic al LEVOTHROID) 00 Every Center 75 MCG morning on tablet an empty stomach . levothyroxi Yes 75ug Take [address] 8-06 mcg by [facility] (SYNTHROID, 00:00: mouth Medic al LEVOTHROID) 00 Every Center 75 MCG morning on tablet an empty stomach . budesonide- 2021- No 2{puff} [address] [facility] [address] formoterol 10-03 [facility] (SYMBICORT) 00:00: 00:00 Medic al 160-4.5 00 :00 Center mcg/actuati on inhaler budesonide- 2021- No 2{puff} [address] [address] formoterol 10-03 [facility] (SYMBICORT) 00:00: 00:00 Medic al 160-4.5 00 :00 Center mcg/actuati on inhaler albuterol 0 2021- No 2{puff} [address] HFA (PROAIR 6-25 06-11 [facility] HFA) 90 00:00: 00:00 Medical mcg/actuati 00 :00 Center on inhaler albuterol 2013-0 2021- No 2{puff} [address] HFA (PROAIR 12-[address] HFA) 90 00:00: 00:00 Medical mcg/actuati 00 :00 Center on inhaler Immunizations Ordered Immunization Filled Date Status Comments Sour ce Name Immunization Name Influenza Virus 2022-04-15 Completed Sonal Se ybold Vaccine, 00:00:00 - External Quadrivalent, High Dose, Age 65 And Up Influenza Virus 2022-04-15 Completed Sonal Se ybold Vaccine, 00:00:00 - External Quadrivalent, High Dose, Age 65 And Up Influenza Virus 2022-04-15 Completed Sonal Se ybold [...] And Up Covid-19 Vaccine 2020-10-03 Completed Sonal gao (Moderna), Mrna-lnp, 00:00:00 [facility], Pf, 100 Mcg/0.5ml,IM Covid-19 Vaccine 2020-10-03 Completed Sonal gao (Moderna), Mrna-lnp, 00:00:00 [facility] Protein, Pf, 100 Mcg/0.5ml,IM Covid-19 Vaccine 2020-10-03 Completed Sonal powellbold (Moderna), Mrna-lnp, 00:00:00 [facility] Protein, Pf, 100 Mcg/0.5ml,IM Covid-19 Vaccine 2020-10-03 Completed Sonal powellbonupur Moderna (Spikevax), 00:00:00 Mrna-lnp, [facility], Pf Covid-19 Vaccine 2020-10-03 Completed Sonal Whitlock eybold Moderna (Spikevax), 00:00:00 - Ext ernal Mrna-lnp, [facility], Pf Covid-19 Vaccine 2020-10-03 Completed Sonal gao Moderna (Spikevax), 00:00:00 - Ext ernal Mrna-lnp, [facility] Protein, Pf Covid-19 Vaccine 2020-10-03 Completed Sonal gao Moderna (Spikevax), 00:00:00 - Ext ernal Mrna-lnp, [facility] Protein, Pf Covid-19 Vaccine 2020-10-03 Completed Sonal powellbold (Moderna), Mrna-lnp, 00:00:00 [facility] Protein, Pf, 100 Mcg/0.5ml,IM Covid-19 Vaccine 2020-10-03 Completed Sonal powellbold (Moderna), Mrna-lnp, 00:00:00 [facility] Protein, Pf, 100 Mcg/0.5ml,IM Covid-19 Vaccine 2020-09-05 Completed Sonal Whitlock eybold (Moderna), Mrna-lnp, 00:00:00 [facility] Protein, Pf, 100 Mcg/0.5ml,IM Covid-19 Vaccine 2020-09-05 Completed Sonal Whitlock eybold (Moderna), Mrna-lnp, 00:00:00 [facility] Protein, Pf, 100 Mcg/0.5ml,IM Covid-19 Vaccine 2020-09-05 Completed Sonal Whitlock eybold (Moderna), Mrna-lnp, 00:00:00 [facility] Protein, Pf, 100 Mcg/0.5ml,IM Covid-19 Vaccine 2020-09-05 Completed Sonal powellbold Moderna (Spikevax), 00:00:00 Mrna-lnp, Mayo Protein, Pf Covid-19 Vaccine 2020-09-05 Completed Sonal S eybold Moderna (Spikevax), 00:00:00 - Ext ernal Mrna-lnp, Mayo Protein, Pf Covid-19 Vaccine 2020-09-05 Completed Sonal S eybold Moderna (Spikevax), 00:00:00 - Ext ernal Mrna-lnp, Mayo Protein, Pf Covid-19 Vaccine 2020-09-05 Completed Sonal S eybold Moderna (Spikevax), 00:00:00 - Ext ernal Mrna-lnp, Mayo Protein, Pf Covid-19 Vaccine 2020-09-05 Completed Sonal Kamlesh eybold (Moderna), Mrna-lnp, 00:00:00 Mayo Protein, Pf, [...] d (Shingrix) 00:00:00 Shingles IM 2018-06-24 Completed Osnal Seybol d (Shingrix) 00:00:00 Shingles IM 2018-06-24 [...] 65 And Up Influenza Virus 2018-05-19 Completed Osnal Se ybold Vaccine, High Dose, [...] 00:00:00 - External Shingles IM 2018-03-25 Completed Soanl Seybol d (Shingrix) 00:00:00 - External Shingles [...] And Up Tdap- (Boostrix, 2016-03-07 Completed Sonal S eybold Adacel) 00:00:00 Tdap- (Boostrix, 2016-03-07 Completed Sonal S eybold Adacel) 00:00:00 Tdap- (Boostrix, 2016-03-07 Completed Sonal S eybold Adacel) 00:00:00 Tdap- (Boostrix, 2016-03-07 Completed Sonal S eybold Adacel) 00:00:00 Tdap- (Boostrix, 2016-03-07 Completed Sonal S eybold Adacel) 00:00:00 - External Tdap- (Boostrix, 2016-03-07 Completed Sonal S eybold Adacel) 00:00:00 - External Tdap- (Boostrix, 2016-03-07 Completed Sonal S eybold Adacel) 00:00:00 - External Tdap- (Boostrix, 2016-03-07 Completed Sonal S eybold Adacel) 00:00:00 Tdap- (Boostrix, 2016-03-07 Completed Sonal S eybold Adacel) 00:00:00 Tdap 2016-03-07 Completed MARY Franco 00:00:00 [facility] Pneumococcal Vaccine, 2012-10-20 Completed Claus sey Seybold [...] Polysaccharide 00:00:00 Shingles SQ 2010-07-06 Completed Sonal Monkybol d (Zostavax) 00:00:00 Shingles SQ 2010-07-06 Completed Sonal Monkybol d (Zostavax) 00:00:00 Shingles SQ 2010-07-06 Completed Sonal Monkybol d (Zostavax) 00:00:00 Shingles SQ 2010-07-06 Completed Sonal Monkybol d (Zostavax) 00:00:00 Shingles SQ 2010-07-06 Completed Sonal Seybol d (Zostavax) 00:00:00 - External Shingles SQ 2010-07-06 Completed Sonal Monkybol d (Zostavax) 00:00:00 - External Shingles SQ 2010-07-06 Completed Sonal Seybol d (Zostavax) 00:00:00 - External Shingles SQ 2010-07-06 Completed Sonal Seybol d (Zostavax) 00:00:00 Shingles SQ 2010-07-06 Completed Sonal Seybol d (Zostavax) 00:00:00 Pneumococcal Vaccine, Unknown Completed Claus sey Seybold Polysaccharide - External Shingles SQ Unknown Completed Sonal Monkybol d (Zostavax) - External Tdap- (Boostrix, Unknown Completed Sonal gao Adacel) - External Pneumococcal Vaccine, Unknown Completed Claus franks Guido Conjugate 13 - External Influenza Virus Unknown Completed Sonal hernandez Vaccine, High Dose, - Ext ernal Age 65 And Up Influenza Virus Unknown Completed Sonal hernandez Vaccine, High Dose, - Ext ernal Age 65 And Up Influenza Virus Unknown Completed Sonal doradoold Vaccine, High Dose, - Ext ernal Age 65 And Up Shingles IM Unknown Completed Sonal Juliusol d (Shingrix) - External Shingles IM Unknown Completed Sonal Madridol d (Shingrix) - External Influenza Virus Unknown Completed Sonal hernandez Vaccine, High Dose, - Ext ernal Age 65 And Up Influenza Virus Unknown Completed Sonal hernandez Vaccine, - External Quadrivalent, High Dose, Age 65 And Up Covid-19 Vaccine Unknown Completed Sonal powellbold Moderna (Spikevax), - Ext ernal Mrna-lnp, Mayo Protein, Pf Covid-19 Vaccine Unknown Completed Sonal Whitlock eybold Moderna (Spikevax), - Ext ernal Mrna-lnp, Mayo Protein, Pf Influenza Virus Unknown Completed Sonal hernandez Vaccine, - External Quadrivalent, High Dose, Age 65 And Up Influenza Virus Unknown Completed Sonal hernandez Vaccine, - External Quadrivalent, High Dose, Age 65 And Up Tdap Unknown Completed [facility] Vital Signs Vital Name Observation Time Observation Value Comments Source Systolic blood 2023-04-21 19:17:00 152 mm[Hg] Sonal Lora pressure - External Diastolic blood 2023-04-21 19:17:00 75 mm[Hg] Renetta Lora pressure - External Heart rate 2023-04-21 19:17:00 77 /min Sonal powellbonupur - External Respiratory rate 2023-04-21 19:17:00 15 /min Maribel Lora - External Body height 2023-04-21 19:17:00 152.4 cm Sonal gao - External Body weight 2023-04-21 19:17:00 67.132 kg Sonal Kamlesh andrebonupur - External BMI 2023-04-21 19:17:00 28.90 kg/m2 Sonal gao - External Oxygen saturation 2023-04-21 19:17:00 99 /min Claus Lora in Arterial blood - External by Pulse oximetry Systolic blood 2022-10-15 19:55:00 134 mm[Hg] Sonal Seybold pressure - External Diastolic blood 2022-10-15 19:55:00 82 mm[Hg] Kelse y Seybold pressure - External Heart rate 2022-10-15 19:55:00 75 /min Sonal S eybold - External Body temperature 2022-10-15 19:55:00 35.94 Cheyanne Maribel ey Seybold - External Respiratory rate 2022-10-15 19:55:00 14 /min Maribel ey Seybold - External Body height 2022-10-15 19:55:00 152.4 cm Sonal S eybold - External Body weight 2022-10-15 19:55:00 69.673 kg Sonla S eybold - External BMI 2022-10-15 19:55:00 30.00 kg/m2 Sonal S eybold - External Oxygen saturation 2022-10-15 19:55:00 98 /min Claus golden Monkavebrady in Arterial blood - External by Pulse oximetry Systolic blood 2022-07-30 20:45:00 188 mm[Hg] Sonal Seybold pressure - External Diastolic blood 2022-07-30 20:45:00 88 mm[Hg] Kelse y Seybold pressure - External Heart rate 2022-07-30 20:45:00 82 /min Sonal S eybold - External Body temperature 2022-07-30 20:45:00 36.39 Cheyanne Maribel ey Seybold - External Respiratory rate 2022-07-30 20:45:00 15 /min Maribel ey Seybold - External Body height 2022-07-30 20:45:00 152.4 cm Sonal S eybold - External Body weight 2022-07-30 20:45:00 68.947 kg Sonal S eybold - External BMI 2022-07-30 20:45:00 29.69 kg/m2 Sonal S eybold - External HEIGHT 2022-06-11 11:18:00 152.4 cm WEIGHT 2022-06-11 [...] eybold BMI 2021-03-26 12:57:00 30.27 kg/m2 Sonal S eybold Systolic blood 2022-06-11 21:15:00 117 mm[Hg] [facility] Diastolic blood 2022-06-11 21:15:00 56 mm[Hg] [facility] Heart rate 2022-06-11 21:15:00 78 /min [facility] Respiratory rate 2022-06-11 20:45:00 18 /min [facility] Oxygen saturation 2022-06-11 19:53:00 96 /min [facility] in Arterial blood Medical nter by Pulse oximetry Body temperature 2022-06-11 11:18:00 36.44 Cheyanne [facility] Body height 2022-06-11 11:18:00 152.4 cm [facility] Body weight 2022-06-11 11:18:00 66.815 kg [facility] BMI 2022-06-11 11:18:00 28.77 kg/m2 [facility] Procedures Procedure Date / Time Performed Performing Clinician [facility] CATHETERIZATION, HEART, 2022-06-11 18:24:00 Catracho Dubon I [facility] LEFT, WITH PERCUTANEOUS [facility] Center CORONARY INTERVENTION PERCUTANEOUS CORONARY 2022-06-11 18:24:00 Catracho Dubon [facility] INTERVENTION, WITH STENT [facility] Center INSERTION ABORH, MANUAL 2022-06-11 12:10:00 Cally Doss [facility] TYPE AND SCREEN, 2022-06-11 12:03:00 Katie Preston [facility] AUTOMATED [facility] Center VASCULAR DIAGRAM -SCAN 2022-06-11 00:00:00 Provider, Default [facility] CARDIAC CATH REPORT - 2022-06-11 00:00:00 Provider, Default [facility] SCAN Scanning [facility] Center EKG-SCANNED 2022-06-11 00:00:00 Provider, Default [facility] Scanning [facility] URINALYSIS, ROUTINE 2021-04-11 16:21:00 Coco Real HGB A1C WITH MBG 2021-04-11 15:36:00 Coco Real ESTIMATION [place] LIPID PANEL 2021-04-11 15:35:00 Coco Real S sima Zaldivar CMP14+CBC/D/PLT+TSH 2021-04-11 15:35:00 Coco Real ey Seybbrady W/RFLX Zen Plan of Care Planned Activity Planned Date Details Comments Source Future Scheduled 2026-03-07 DTAP/TDAP/TD VACCINES [facility] 00:[facility]:00 (2 - Td or Tdap) Medical Any ter [code = DTAP/TDAP/TD VACCINES (2 - Td or Tdap)] Future Scheduled 2026-03-07 DTAP/TDAP/TD VACCINES [facility] 00:00:00 (2 - Td or Tdap) Medical Any ter [code = DTAP/TDAP/TD VACCINES (2 - Td or Tdap)] Future Scheduled 2023-06-[address] [facility] Test 00:00:00 Counseling and Medical Cente r Screening (12+) [code = Tobacco Cessation Counseling and Screening (12+)] Future Scheduled 2023-06-[address] [facility] Test 00:00:00 Counseling and Medical Cente r Screening (12+) [code = Tobacco Cessation Counseling and Screening (12+)] Future Scheduled 2023-03-[address] [facility] Test 00:00:00 (#1) [code = Medical Center Influenza Vaccine (#1)] Future Scheduled 2022-07-[address] [facility] Test 00:00:00 (12+) [code = Medical Center DEPRESSION SCREENING (12+)] Future Scheduled 2022-07-06 FALLS RISK SCREENING [facility] Test 00:00:00 [code = FALLS RISK Medical C enter SCREENING] Future Scheduled 2022-07-[address] [...] - Booster for Moderna series)] Future Scheduled 2020-11-28 COVID-19 VACCINE (3 - [facility] 00:[facility]:00 Moderna series) [code Medica l Center = COVID-19 VACCINE (3 - Moderna series)] Future Scheduled 2016-07-[address] [facility] 00:[facility]:00 WELLNESS (YEAR 2 or Medical Center FIRST YEAR if no IPPE) [code = MEDICARE ANNUAL WELLNESS (YEAR 2 or FIRST YEAR if no IPPE)] Future Scheduled 2016-07-[address] [facility] 00:00:00 WELLNESS (YEAR 2 or Medical Center FIRST YEAR if no IPPE) [code = MEDICARE ANNUAL WELLNESS (YEAR 2 or FIRST YEAR if no IPPE)] Future Scheduled 2010-08-31 SHINGLES VACCINES ([address] [facility] 00:00:00 of 3) [code = Medical Center SHINGLES VACCINES (2 of 3)] Future Scheduled 2010-08-31 SHINGLES VACCINES ([address] [facility] Test 00:00:00 of 3) [code = Medical Center SHINGLES VACCINES (2 of 3)] Future Scheduled 1962-02-02 HEPATITIS C SCREENING [facility] 00:00:00 [code = HEPATITIS C Medical Center SCREENING] Future Scheduled 1962-02-02 HEPATITIS C SCREENING [facility] 00:00:00 [code = HEPATITIS C Medical Center SCREENING] Future Scheduled 1944 DXA SCAN [code = DXA [facility] Test 00:00:00 SCAN] [facility] Center Future Scheduled 1944 DXA SCAN [code = DXA [facility] Test 00:00:00 SCAN] [facility] Center Encounters Start End Encounter Admission Attending Care Care Encounter Source Date/Time Date/Time Type Type Clinicians Facility Department ID 2023-05-21 2023-05-21 Outpatient SONAL PIERSON [id number] Sonal 10:30:00 10:30:00 DERRICK Monkybol jc 2023-04-21 2023-04-21 Outpatient SONAL PIERSON [id number] Sonal 14:15:00 14:15:00 DERRICK Seybol jc 2023-04-20 2023-04-20 Outpatient SONAL PAT [id number] Sonal 12:25:00 12:25:00 AYSHAISJENNIFFER Seybol d 2023-04-17 2023-04-17 Outpatient SONAL PAT [id number] Sonal 08:55:00 08:55:00 EVISIT Seybol d 2023-04-16 2023-04-16 Outpatient SONAL PIERSON [id number] Sonal 08:00:00 08:00:00 DERRICK Seybol d 2023-03-12 2023-03-12 Outpatient SONAL REAL [id number] Sonal 00:00:00 00:00:00 COCO Seyb old 2023-02-16 2023-02-16 Outpatient SONAL REAL [id number] Sonal 00:00:00 00:00:00 COCO Seyb old 2022-10-15 2022-10-15 Outpatient SONAL PIERSON [id number] Sonal 15:00:00 15:00:00 DERRICK Seybol d 2022-10-14 2022-10-14 Outpatient SONAL GILL [id number] Sonal 11:20:00 11:20:00 LJ Seybo ld 2022-10-14 2022-10-14 Outpatient PRESONAL DISLA [id number] Sonal 10:00:00 10:00:00 DERRICK Seybol d 2022-08-20 2022-08-20 Outpatient SONAL NORWOOD [id number] Sonal 00:00:00 00:00:00 LISA Seybol d 2022-08-14 2022-08-14 Outpatient SONAL PRUITT [id number] Sonal 11:30:00 11:30:00 Seybol d 2022-08-14 2022-08-14 Outpatient SONAL PRUITT [id number] Sonal 10:40:00 10:40:00 Seybol d 2022-08-07 2022-08-07 Outpatient SONAL PIRESON [id number] Sonal 13:45:00 13:45:00 DERRICK Seybol d 2022-07-30 2022-07-30 Outpatient SONAL RASHID [id number] Sonal 15:00:00 15:00:00 SIMON Seybol d 2022-07-28 2022-07-28 Outpatient SONAL PIERSON [id number] Sonal 00:00:00 00:00:00 DERRICK Seybol jc 2022-07-25 2022-07-25 Outpatient SONAL NORWOOD [id number] Sonal 00:00:00 00:00:00 LISA Seybol jc 2022-07-24 2022-07-24 Outpatient SONAL COSTELLO [id number] Sonal 13:25:00 13:25:00 JAMIE Seybol jc 2022-07-02 2022-07-02 Outpatient SONAL COSTELLO [id number] Sonal 13:25:00 13:25:00 JAMIE Monkybol jc 2022-06-12 2022-06-12 Outpatient SONAL JOHNSON [id number] Sonal 00:00:00 00:00:00 MAXX Madridol jc 2022-06-11 2022-06-11 [facility] [id number] [facility] 11:06:00 21:50:00 [facility] 2022-06-11 2022-06-11 [facility] [id number] 11:06:00 21:50:00 Encounter [facility] 2022-06-11 2022-06-11 [facility] [id number] 11:06:00 21:50:00 Encounter [facility] 2022-06-11 2022-06-11 Surgery [facility] [id number] 18:03:00 20:39:00 [facility] 2022-06-11 2022-06-11 Surgery Trevor [facility] [id number] 18:03:00 20:39:00 [facility] 2022-06-11 2022-06-11 Outpatient SONAL TORRES [id number] Sonal 08:00:00 08:00:00 ROXIE Madridol jc 2022-06-11 2022-06-11 Outpatient SONAL DUBON [id number] Sonal 00:00:00 00:00:00 CATRACHO Seybol d 2022-06-11 2022-06-11 Travel [facility] [id number] [facility] 00[facility]00 [facility] 2022-06-11 2022-06-11 Travel [facility] [id number] [facility] 00:[facility] 00:00:00 [facility] 2022-06-10 2022-06-10 Outpatient ALEJANDROSONALJERONIMO SONAL PRUITT [id number] Sonal 00:00:00 00:00:00 MD SALOME Seybol d 2022-06-07 2022-06-07 Outpatient SONAL COSTELLO [id number] Sonal 00:00:00 00:00:00 JAMIE Seybol d 2022-06-06 2022-06-06 Outpatient SONAL COSTELLO [id number] Sonal 00:00:00 00:00:00 JAMIE Seybol d 2022-06-06 2022-06-06 Outpatient SONAL PRUITT [id number] Sonal 00:00:00 00:00:00 Seybol d 2022-06-04 2022-06-04 Outpatient SONAL PRUITT [id number] Sonal 16:35:00 16:35:00 Seybol d 2022-06-04 2022-06-04 Outpatient LAB47 SONAL PRUITT [id number] Sonal 16:00:00 16:00:00 Seybol d 2022-06-04 2022-06-04 Outpatient SONAL COSTELLO [id number] Sonal 15:10:00 15:10:00 JAMIE Seybol d 2022-06-04 2022-06-04 Outpatient TRED47 SONAL PRUITT [id number] Sonal 11:45:00 11:45:00 Seybol d 2022-04-28 2022-04-28 Outpatient TRED4Srinivasa PRUITT [id number] Sonal 11:00:00 11:00:00 Seybol d 2022-04-24 2022-04-24 Outpatient TRED47 SONAL PRUITT [id number] Sonal 11:30:00 11:30:00 Seybol d 2022-04-24 2022-04-24 Outpatient TRANG, SONAL PRUITT [id number] Sonal 10:40:00 10:40:00 JAMIE Seybol d 2022-04-16 2022-04-16 Outpatient SHAGUFTA SONAL PRUITT [id number] Sonal 00:00:00 00:00:00 DERRICK Seybol d 2022-04-16 2022-04-16 Outpatient SONAL PIERSON [id number] Sonal 00:00:00 00:00:00 DERRICK Seybol d 2022-04-15 2022-04-15 Outpatient LAB90 SONAL PRUITT [id number] Sonal 09:45:00 09:45:00 Seybol d 2022-04-15 2022-04-15 Outpatient ETHANHAYDERSONAL Whitlock [id number] Sonal 08:45:00 08:45:00 DERRICK Seybol d 2022-02-20 2022-02-20 Outpatient SONAL NORWOOD [id number] Sonal 00:00:00 00:00:00 LISA Seybol d 2022-02-17 2022-02-17 Outpatient SONAL NORWOOD [id number] Sonal 00:00:00 00:00:00 LISA Seybol d 2022-02-12 2022-02-12 Office Collin Norwood [id number] Sonal 08:30:00 09:00:00 Visit Lisa Wiley [id number] Se mary Nash [id number] 2022-02-11 2022-02-11 Outpatient SONAL NORWOOD [id number] Sonal 00:00:00 00:00:00 LISA Seybol d 2022-01-15 2022-01-15 Outpatient SONAL NORWOOD [id number] Sonal 10:45:00 10:45:00 LISA Seybol d 2022-01-14 2022-01-14 Office Collin Pierson [id number] Sonal 10:45:00 11:00:00 Visit Derrick Wiley [id number] Se ybold [id number] 2021-10-29 2021-10-29 Office Collin Norwood [id number] Sonal 10:30:00 10:45:00 Visit Lisa Wiley [id number] Se ybold Somogyi [id number] 2021-08-02 2021-08-02 Outpatient SONAL REAL [id number] Sonal 00:00:00 00:00:00 COCO Seyb old 2021-07-31 2021-07-31 Outpatient SONAL NORWOOD [id number] Sonal 00:00:00 00:00:00 LISA Seybol d 2021-06-11 2021-06-11 Office ZULLY Galvez [id number] Sonal 10:00:00 10:15:00 Visit Elena [id number] S sima [id number] 2021-06-08 2021-06-08 Outpatient SONAL NORWOOD [id number] Sonal 00:00:00 00:00:00 LISA Seybol d 2021-06-06 2021-06-06 Outpatient SONAL PRUITT [id number] Sonal 13:40:00 13:40:00 Seybol d 2021-06-06 2021-06-06 Outpatient SONAL PRUITT [id number] Sonal 13:00:00 13:00:00 Seybol d 2021-05-31 2021-05-31 Outpatient SONAL PRUITT [id number] Sonal 12:20:00 12:20:00 Seybol d 2021-05-31 2021-05-31 Outpatient SONAL PRUITT [id number] Sonal 11:00:00 11:00:00 Seybol d 2021-04-23 2021-04-23 Office Collin Norwood [id number] Sonal 07:54:17 08:24:17 Visit Lisa Wiley [id number] Se ybold Somogyi [id number] 2021-04-11 2021-04-11 Outpatient LAB47 SONAL PRUITT [id number] Sonal 11:00:00 11:00:00 Seybol d 2021-04-11 2021-04-11 Office ZULLY REAL [id number] Sonal 10:00:00 10:00:00 Visit COCO [id number] Seybold [id number] 2021-03-28 2021-03-28 Outpatient SONAL NORWOOD [id number] Sonal 00:00:00 00:00:00 LISA Seybol d 2021-03-26 2021-03-26 Outpatient SONAL NORWOOD [id number] Sonal 13:30:00 13:30:00 LISA Seybol d 2021-03-26 2021-03-26 Office Collin Norwood [id number] Sonal 07:55:35 08:25:35 Visit Lisa Wiley [id number] Se ybold Somogyi [id number] 2021-03-22 2021-03-22 Outpatient SONAL NORWOOD [id number] Sonal 09:00:00 09:00:00 LISA Seybol d 2021-03-12 2021-03-12 Office ZULLY Galvez [id number] Sonal 07:59:43 08:14:43 Visit Elena [id number] S eybold [id number] 2021-02-22 2021-02-22 Outpatient SONAL NORWOOD [id number] Sonal 08:00:00 08:00:00 LISA Seybol d 2021-01-22 2021-01-22 Outpatient SONAL NORWOOD [id number] Sonal 14:15:00 14:15:00 LISA Seybol d Results Test Description Test Time Test Comments Results Result Comments Source CMP14+CBC/D/PLT+TSH W/RFLX 2021-04-13 19:06:00 Test Item Value Reference Range Interpretation Comme nts GLUCOSE, SERUM (test code 95 mg/dL 65-99 = 2345-7) BUN (test code = 3094-0) 14 mg/dL 8-27 CREATININE, SERUM (test 0.66 mg/dL 0.57-1.00 code = 2160-0) EGFR IF NONAFRICN AM 85 mL/min/1.73 >59 (test code = 09725-2) EGFR IF AFRICN AM (test 99 mL/min/1.73 >59 [facility] currently code = 07195-3) reports eGFR in compliance with the current ?recommendation s of the [employer] Kid[employer]. Lab amanda will ?update reporti ng as new guidelines are published from the NKF- N ?Task force. BUN/CREATININE RATIO 12-28 (test code = 3097-3) SODIUM, SERUM (test code 141 mmol/L 134-144 = 2951-2) POTASSIUM, SERUM (test 4.5 mmol/L 3.5-5.2 code = 2823-3) CHLORIDE, SERUM (test 103 mmol/L 96-106 code = 2075-0) CARBON DIOXIDE, TOTAL 26 mmol/L 20-29 (test code = 2027-) CALCIUM, SERUM (test code 10.0 mg/dL 8.7-10.3 = 11793-7) PROTEIN, TOTAL, SERUM 6.7 g/dL 6.0-8.5 (test code = 2885-2) ALBUMIN, SERUM (test code 4.0 g/dL 3.7-4.7 = 1751-7) GLOBULIN, TOTAL (test 2.7 g/dL 1.5-4.5 code = 48941-3) A/G RATIO (test code = 1.2-2.2 1759-0) BILIRUBIN, TOTAL (test 0.8 mg/dL 0.0-1.2 code = 1974-2) ALKALINE PHOSPHATASE, See_Comment Ple ase note reference SERUM (test code = interval change 6768-6) [Automated mess age] The system which ge nerated this result tra nsmitted reference range : 44 - 121 IU/L. The r eference range was not u sed to interpret this result as normal/abnormal . AST (SGOT) (test code = See_Comment [Au tomated message] The 1919-) system which ge nerated this result tra nsmitted reference range : 0 - 40 IU/L. The refer ence range was not u sed to interpret this result as normal/abnormal . ALT (SGPT) (test code = See_Comment [Au tomated message] The 1741-) system which ge nerated this result tra nsmitted reference range : 0 - 32 IU/L. The refer ence range was not u sed to interpret this result as normal/abnormal . TSH (test code = 03083-0) See_Comment [ Automated message] The system which ge nerated this result tra nsmitted reference range : 0.450 - 4.500 uIU/mL. T he reference range was not used to interpr et this result as normal/abnormal . WHITE BLOOD CELL (WBC) CANCELED Test not performed COUNT (test code = Result ca nceled by the 6690-2) ancillary. RED BLOOD CELL (RBC) CANCELED Test no t performed COUNT (test code = 789-8) Re sult canceled by the ancillary. HEMOGLOBIN (test code = CANCELED Test not performed 718-7) Result canceled by the ancillary. HEMATOCRIT (test code = CANCELED Test not performed 4544-3) Result canceled by the ancillary. PLATELETS (test code = CANCELED Test not performed 777-3) Result canceled by the ancillary. NEUTROPHILS (test code = CANCELED Yasmin t not performed 770-8) Result canceled by the ancillary. LYMPHS (test code = CANCELED Test not performed 736-9) Result canceled by the ancillary. MONOCYTES (test code = CANCELED Test not performed 5905-5) Result canceled by the ancillary. EOS (test code = 713-8) CANCELED Test not performed Result canceled by the ancillary. LYMPHS (ABSOLUTE) (test CANCELED Test not performed code = 731-0) Result cancele d by the ancillary. EOS (ABSOLUTE) (test code CANCELED Te st not performed = 711-2) Result canceled by the ancillary. BASO (ABSOLUTE) (test CANCELED Test n ot performed code = 704-7) Result cancele d by the ancillary. ARTURO (test code = ARTURO) [facility] results reported in Eastern Time. [facility] Clinical Information:SRC:Blood, venous*Venipunc ture ? [facility] Source of Specimen:Blood, venous*Venfanny Pruitt SeyboldLIPID [id number] 19:06:00 Test Item Value Reference Range Interpretation Comments CHOLESTEROL, TOTAL (test 176 mg/dL 100-199 code = 2093-3) TRIGLYCERIDES (test code 128 mg/dL 0-149 = 2571-8) HDL CHOLESTEROL (test 59 mg/dL >39 code = 2085-9) VLDL CHOLESTEROL PARKER 22 mg/dL 5-40 (test code = 23128-1) LDL CHOL CALC (NIH) (test 95 mg/dL 0-99 code = 01037-8) ARTURO (test code = ARTURO) [facility] results reported in Eastern Time. [facility] Clinical Information:[facility] Source of Specimen:Blood, venous*Venippetrona Pruitt SeyboldHGB A1C WITH MBG [id number] 14:04:00 Test Item Value Reference Range Interpretation Comments HEMOGLOBIN A1C (test 5.6 % 4.8-5.6 ? code = 4548-4) ? . ? Prediabetes: 5. 7 - 6.4 ? Diabetes: >6.4 ? Glycemic control for adults with diabetes: <7.0 ESTIM. AVG GLU (EAG) 114 mg/dL (test code = 39551-5) ARTURO (test code = [facility] results ARTURO) reported in Eastern Time. [facility] Clinical Information:SRC:B lood, venous*Venipunc ture ? [facility] Source of Specimen:Blood, venous*Rodolfo Pruitt SeyboldURINALYSIS, [id number] 10:09:00 Test Item Value Reference Range Interpretation Comments SPECIFIC GRAVITY 1.005-1.030 (test code = 2965-2) PH (test code = 5.0-7.5 5803-2) URINE-COLOR (test Yellow Yellow code = 5778-6) APPEARANCE (test Clear Clear code = 5767-9) WBC ESTERASE (test Negative Negative code = 5799-2) PROTEIN (test code Negative Negative/Trace = 47794-1) GLUCOSE (test code Negative Negative = 2349-9) KETONES (test code Negative Negative = 2514-8) OCCULT BLOOD (test Negative Negative code = 5794-3) BILIRUBIN (test Negative Negative code = 5770-3) UROBILINOGEN,SEMI-Q 1.0 mg/dL 0.2-1.0 N (test code = 93766-2) NITRITE, URINE Negative Negative (test code = 5802-4) MICROSCOPIC Microscopic not EXAMINATION (test indicated and not code = 74650-0) performed. ARTURO (test code = [facility] results ARTURO) reported in Eastern Time. [facility] Clinical Information:SRC: Urine ?[facility] Source of Specimen:Urine Sonal Lora
--- NOTE | 2023-05-17 21:26 | RAD REPORT ---
EXAM DESCRIPTION: RAD - Pelvis - 05/17/2023 9:11 pm CLINICAL HISTORY: Pelvic pain status post injury FINDINGS: Mildly displaced fractures left superior and inferior pubic rami No dislocation
--- NOTE | 2023-05-17 21:27 | RAD REPORT ---
EXAM DESCRIPTION: RAD - Hip Left 2 View - 05/17/2023 9:11 pm CLINICAL HISTORY: Left hip pain status post injury FINDINGS: Mildly displaced fractures left superior and inferior pubic rami No dislocation
--- NOTE | 2023-05-17 21:44 | RAD REPORT ---
EXAM DESCRIPTION: CT - Head Brain Wo Cont - 05/17/2023 9:35 pm CLINICAL HISTORY: Head injury status fall COMPARISON: July 2022 TECHNIQUE: Computed axial tomography of the head was obtained. IV contrast was not requested. All CT scans are performed using dose optimization technique as appropriate and may include automated exposure control or mA/KV adjustment according to patient size. FINDINGS: An intracranial bleed is not seen. Hyperostosis frontalis interna is present The ventricles are normal in caliber No significant hypodense areas within the brain visualized No extra-axial fluid collection is noted. Fluid within the sinuses/ mastoids is not seen IMPRESSION: No acute intracranial abnormality is seen If patient's symptoms persist MRI of the brain would be recommended
--- NOTE | 2023-05-17 22:07 | EDPHYS ---
Physician Documentation [facility] Name: Alessandra Marie Age: 78 yrs Sex: Female : 1945 Arrival Date: 05/17/2023 Time: 20:22 Bed 17 Private MD: ED Physician Rhett Smith HPI: 05/17 20:44 This 78 yrs old Female presents to ER via Unassigned with complaints of Fall Injury, sp3 Head Injury Without LOC-Adult, Leg Injury. 20:44 78-year-old female with a history of hypertension, hypothyroidism, who presents to the sp3 ED with a approximately 1 hour history of mechanical ground-level fall onto tile with injury to the left posterior side of her head in the parietal occipital region and also complains of left inguinal pain and decreased ability to bear weight secondary to the pain. Patient can still put partial weight and is able to ambulate. She denies any other signs or symptoms or pain including neck pain, face pain, chest pain or shortness of breath, abdominal pain, back pain, other extremity pain, bleeding, syncope, near syncope, any prodromal event secondary to the incident, or any other signs or symptoms on ROS at this time.. 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 - Social history:: Smoking status: Patient denies any tobacco usage or history of. Patient uses alcohol, but reports only rare drinking. Patient/guardian denies using street drugs. ROS: 20:45 Constitutional: Negative for fever, chills, and weight loss, Eyes: Negative for injury, sp3 pain, redness, and discharge, ENT: Negative for injury, pain, and discharge, Neck: Negative for injury, pain, and swelling, Cardiovascular: Negative for chest pain, palpitations, and edema, Respiratory: Negative for shortness of breath, cough, wheezing, and pleuritic chest pain, Abdomen/GI: Negative for abdominal pain, nausea, vomiting, diarrhea, and constipation, Back: Negative for injury and pain, Skin: Negative for injury, rash, and discoloration, Psych: Negative for depression, anxiety, suicide ideation, homicidal ideation, and hallucinations, Allergy/Immunology: Negative for hives, rash, and allergies, Endocrine: Negative for neck swelling, polydipsia, polyuria, polyphagia, and marked weight changes, Hematologic/Lymphatic: Negative for swollen nodes, abnormal bleeding, and unusual bruising, 20:45 All other systems are negative, Exam: 20:45 Constitutional: This is a well developed, well nourished patient who is awake, alert, sp3 and in no acute distress. Eyes: Pupils equal round and reactive to light, extra-ocular motions intact. Lids and lashes normal. Conjunctiva and sclera are non-icteric and not injected. Cornea within normal limits. Periorbital areas with no swelling, redness, or edema. ENT: Nares patent. No nasal discharge, no septal abnormalities noted. External auditory canals are clear. Oropharynx with no redness, swelling, or masses, exudates, or evidence of obstruction, uvula midline. Mucous membranes moist. Neck: Trachea midline, no thyromegaly or masses palpated, and no cervical lymphadenopathy. Supple, full range of motion without nuchal rigidity, or vertebral point tenderness. No Meningismus. Chest/axilla: Normal chest wall appearance and motion. Nontender with no deformity. No lesions are appreciated. Cardiovascular: Regular rate and rhythm with a normal S1 and S2. No gallops, murmurs, or rubs. Normal PMI, no JVD. No pulse deficits. Respiratory: Lungs have equal breath sounds bilaterally, clear to auscultation and percussion. No rales, rhonchi or wheezes noted. No increased work of breathing, no retractions or nasal flaring. Abdomen/GI: Soft, non-tender, with normal bowel sounds. No distension or tympany. No guarding or rebound. No evidence of tenderness throughout. Back: No spinal tenderness. No costovertebral tenderness. Full range of motion. Skin: Warm, dry with normal turgor. Normal color with no rashes, no lesions, and no evidence of cellulitis. Neuro: Awake and alert, GCS 15, oriented to person, place, time, and situation. Cranial nerves II-XII grossly intact. Motor strength 5/5 in all extremities. Sensory grossly intact. Cerebellar exam normal. Normal gait. Psych: Awake, alert, with orientation to person, place and time. Behavior, mood, and affect are within normal limits. 20:45 Head/face: Small hematoma noted 2 cm x 2 cm on the left parietal-occipital region. Mild pain on axial load, full range of motion noted in the left hip. No pain on pelvic palpation and pelvic load on the crests.. Vital Signs: 20:36 BP 170 / 68; Pulse 84; Resp 18; Temp 98.1; Pulse Ox 99% ; Weight 67.13 kg; Height 5 ft. pf1 0 in. ; Pain 9/10; 21:51 BP 142 / 62; Pulse 74; Resp 18; Pulse Ox 100% ; vc1 20:36 Body Mass Index 28.90 (67.13 kg, 152.4 cm) pf1 20:36 Pain Scale: Adult pf1 MDM: 20:37 Patient medically screened. sp3 20:46 Data reviewed: vital signs, nurses notes, radiologic studies. ED course: 78-year-old sp3 female with mechanical ground-level fall injury to the left hip/inguinal canal and head. Will obtain CT scan of the head, pelvis and hip x-rays on the left side. If work-up is negative, we will safely discharge patient home. Clinically I do not have a high suspicion for ICH or fracture. Follow-up with PCP as needed.. 22:02 ED course: Pelvis x-ray demonstrates superior and inferior nondisplaced pubic rami sp3 fracture. Left hip is intact with no pathology. CT scan of the head is negative. We will safely discharge patient home with nonweightbearing status initially with weightbearing as tolerated and follow-up with orthopedic surgery. Patient received [place] prior to discharge.. 05/17 20:43 Order name: CT Head Brain wo Cont; Complete Time: 21:53 sp3 05/17 20:43 Order name: Pelvis XRAY; Complete Time: 21:53 sp3 05/17 20:43 Order name: Hip Left 2 View XRAY; Complete Time: 21:53 sp3 Administered Medications: 22:47 Drug: HYDROcodone-acetaminophen PO 5 mg-325 mg 2 tabs PO once Route: PO; vc1 22:53 Follow up: Response: Medication administered at discharge. vc1 Disposition Summary: 05/17/23 22:06 Discharge Ordered Notes: Location: Home sp3 Condition: Stable sp3 Diagnosis - Left-sided superior and inferior pubic rami fracture, closed head injury, scalp sp3 hematoma, fall Followup: sp3 - With: Private Physician - When: Upon discharge from the Emergency Department - Reason: Continuance of care Followup: sp3 - With: Dileep Amanda MD - When: Upon discharge from the Emergency Department - Reason: Further diagnostic work-up, Re-evaluation by your physician Discharge Instructions: - Discharge Summary Sheet sp3 - Simple Pelvic Fracture, Adult sp3 Forms: - Medication Reconciliation Form sp3 - Thank You Letter sp3 - Antibiotic Education sp3 - Prescription Opioid Use sp3 - Patient Portal Instructions sp3 - Leadership Thank You Letter sp3 Prescriptions: - Tramadol 50 mg Oral Tablet - take 1 tablet ORAL route every 8 hours as needed; 12 tablet; Refills: 0, sp3 Product Selection Permitted Signatures: Dispatcher [employer] Rhett Perdomo MD MD sp3 Esperanza Fuller RN RN vc1 Kavya Hutson RN RN pf1 Corrections: (The following items were deleted from the chart) 21:06 21:04 PMHx: high blood pressure (Aortic torsion with no stenosis); pf1 pf1
--- NOTE | 2023-05-17 22:07 | ER ---
Nurse's Notes [facility] [place], [place] Name: Alessandra Marie Age: 78 yrs Sex: Female : 1945 Arrival Date: 05/17/2023 Time: 20:22 Bed 17 Private MD: Diagnosis: Left-sided superior and inferior pubic rami fracture, closed head injury, scalp hematoma, fall Presentation: 05/17 20:36 Chief complaint: Patient states: left hip pain of 9, S/P fall at 45 minutes [employer]ULT [employer]. pf1 Patient stated tripped while wearing some slip on shoes and fell landing on her left side and hit left posterior head on tile natalie. Patient denies any LOC. Patient stated has a bump to left posterior head. 20:36 Coronavirus screen: Vaccine status: Patient reports receiving the 2nd dose of the covid pf1 vaccine. Client denies travel out of the [place] in the last 14 days. At this time, the client does not indicate any symptoms associated with coronavirus-19. Ebola Screen: Patient negative for fever greater than or equal to 101.5 degrees Fahrenheit, and additional compatible Ebola Virus Disease symptoms. Initial Sepsis Screen: Does the patient meet any 2 criteria? No. Patient's initial sepsis screen is negative. Does the patient have a suspected source of infection? No. Patient's initial sepsis screen is negative. Risk Assessment: Do you want to hurt yourself or someone else? Patient reports no desire to harm self or others. 20:36 Method Of Arrival: Wheelchair pf1 20:36 Acuity: NAYELI 3 pf1 21:17 Onset of symptoms was May 17, 2023. vc1 Triage Assessment: 21:16 General: Appears in no apparent distress. uncomfortable, Behavior is calm, cooperative, vc1 appropriate for age. Pain: Complains of pain in left hip Pain does not radiate. Pain currently is 0 out of 10 on a pain scale. at worst was 9 out of 10 on a pain scale. Aggravated by repositioning, weight bearing. 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 - Social history:: Smoking status: Patient denies any tobacco usage or history of. Patient uses alcohol, but reports only rare drinking. Patient/guardian denies using street drugs. Screenin:13 [facility] ED Fall Risk Assessment (Adult) History of falling in the last 3 months, vc1 including since admission Yes- single mechanical fall (1 pt) Confusion or Disorientation No (0 pts) Intoxicated or Sedated No (0 pts) Impaired Gait No (0 pts) Mobility Assist Device Used No (0 pt) Altered Elimination No (0 pt) Score/Fall Risk Level 0 - 2 = Low Risk Oriented to surroundings, Maintained a safe environment, Educated pt \T\ family on fall prevention, incl call for assistance when getting out of bed. Abuse screen: Denies threats or abuse. Nutritional screening: No deficits noted. Tuberculosis screening: No symptoms or risk factors identified. Assessment: 21:51 Reassessment: No changes from previously documented assessment. Patient and/or family vc1 updated on plan of care and expected duration. Pain level reassessed. Patient is alert, oriented x 3, equal unlabored respirations, skin warm/dry/pink. Vital Signs: 20:36 BP 170 / 68; Pulse 84; Resp 18; Temp 98.1; Pulse Ox 99% ; Weight 67.13 kg; Height 5 ft. pf1 0 in. ; Pain 9/10; 21:51 BP 142 / 62; Pulse 74; Resp 18; Pulse Ox 100% ; vc1 20:36 Body Mass Index 28.90 (67.13 kg, 152.4 cm) pf1 20:36 Pain Scale: Adult pf1 ED Course: 20:25 Patient arrived in ED. [id number] 20:25 Rhett Smith MD is Attending Physician. sp3 21:04 Triage completed. pf1 21:13 Pelvis XRAY In Process Unspecified. EDMS 21:13 Hip Left 2 View XRAY In Process Unspecified. EDMS 21:13 Esperanza Fuller, CATHIE is Primary Nurse. vc1 21:17 Arm band placed on right wrist. vc1 21:17 Patient has correct armband on for positive identification. Bed in low position. Call vc1 light in reach. Provided Education on: safety. Pulse ox on. NIBP on. 21:36 CT Head Brain wo Cont In Process Unspecified. EDMS 22:06 Dileep Amanda MD is Referral Physician. sp3 22:48 No provider procedures requiring assistance completed. Patient did not have IV access vc1 during this emergency room visit. Administered Medications: 22:47 Drug: HYDROcodone-acetaminophen PO 5 mg-325 mg 2 tabs PO once Route: PO; vc1 22:53 Follow up: Response: Medication administered at discharge. vc1 Medication: 21:17 VIS not applicable for this client. vc1 Outcome: 22:06 Discharge ordered by MD. sp3 22:48 Discharged to home via wheelchair, vc1 22:48 Condition: good 22:48 Discharge instructions given to patient, Instructed on discharge instructions, follow up and referral plans. medication usage, Demonstrated understanding of instructions, follow-up care, medications, Prescriptions given X 1, :53 Patient left the ED. vc1 Signatures: Dispatcher [employer] EDDE Rhett Smith MD MD sp3 Jocelynn [id number] Esperanza Fuller RN RN vc1 Kavya Hutson RN RN pf1 Corrections: (The following items were deleted from the chart) 21:06 21:04 PMHx: high blood pressure (Aortic torsion with no stenosis); pf1 pf1
[2023-05-17] MEDS ORDERED: HYDROCODONE/APAP 5/325 MG TAB ONE ×2 (22:58→23:03)
[2023-05-17 23:01] VITALS: TEMP 98.1
[2023-05-17 23:02] VITALS: BP 142/62; O2SAT 100
== END 2023-05-17 22:53 | disposition home or self-care (01) ==
LOC: ER 20:22
DX: S32.512A Fracture of superior rim of left pubis, initial encounter for closed fracture (principal); S32.592A Other specified fracture of left pubis, initial encounter for closed fracture; S00.03XA Contusion of scalp, initial encounter; W18.30XA Fall on same level, unspecified, initial encounter; I10 Essential (primary) hypertension; Z88.0 Allergy status to penicillin
CPT/HCPCS: 70450; 72170; 99283